=== PATIENT | male | born 1940 | race Caucasian/White ===

== ENCOUNTER → 2019-01-15 | Outpatient (CLI) | payer MEDICARE, OTHER ==
[~2019-01-15] MED LIST: ACYC800 PO; CIPR500 PO; DIPASPER; DOC250 PO; FENO54; HYDACE5 PO; METF500 PO; METO100ER; METO25ER; METR500 PO; Norco 5-325 Ta1 EACH PO; ONDA8ODT MM; PIOG15; RXHYDACE PO; RXONDA4ODT MM; SIMV5 PO; [UNRECOGNIZED DRUG - REMARK]; [UNRECOGNIZED DRUG - REMARK]; [UNRECOGNIZED DRUG - REMARK]
[2019-01-15 14:00] LABS: Source, Urine Clean Catch
[2019-01-15 15:06] LABS: Bilirubin, Urine Neg (Neg); Blood, Urine 1+ (Neg); Glucose Qualitative, Urine 1+ (Neg); Ketones, Urine Neg (Neg); Leukocyte Esterase, Urine 1+ (Neg); Nitrite, Urine Neg (Neg); Protein, Urine 3+ (Neg); Specific Gravity, Urine 1.015 (1.003-1.022); Urobilinogen, Urine 1+ (Normal)
[2019-01-15 15:11] LABS: Appearance, Urine Hazy (Clear); Color, Urine Yellow (P-Yellow)
[2019-01-15 15:12] LABS: Red Blood Cells, Urine 0-2 /hpf (0-2)
[2019-01-15 15:14] LABS: Bacteria Rare /hpf; Squamous Epithelial Cells Rare /hpf (Few)
== END | disposition home or self-care (01) ==
LOC: LAB SHORT 13:58 → LAB 13:58 → LAB FUT 01-16 13:40 → EDSTATUS 01-16 13:40
PROVIDERS: Urology
DX: N39.0 Urinary tract infection, site not specified (principal)
CPT/HCPCS: 81001; 87086

== ENCOUNTER 2020-02-28 13:49 | Inpatient (IN) | payer MEDICARE, OTHER ==
[~2020-02-28] VITALS: Ht 172.7 cm; Wt 88.2 kg
[~2020-02-28 13:49] MED LIST changes: +FENO54 PO
[2020-02-28 14:11] LABS: BASOPHILS ABSOLUTE AUTO 0.05 K/mm3 (0.00-0.23); BASOPHILS PERCENT AUTO 1 % (0-2); EOSINOPHILS ABSOLUTE AUTO 0.06 K/mm3 (0.00-0.68); EOSINOPHILS PERCENT AUTO 1 % (0-6); Hematocrit 44.5 % (37.0-53.0); Hemoglobin 14.3 g/dL (13.5-17.5); IMMATURE GRAN ABSOLUTE AUTO 0.06 K/mm3 (0.00-0.10); IMMATURE GRAN PERCENT AUTO 1 % (0-1); LYMPHOCYTES ABSOLUTE AUTO 1.72 K/mm3 (0.84-5.20); LYMPHOCYTES PERCENT AUTO 25 % (21-46); MONOCYTES ABSOLUTE AUTO 0.53 K/mm3 (0.16-1.47); MONOCYTES PERCENT AUTO 8 % (4-13); Mean Corpuscular HGB 30.4 pg (26.0-34.0); Mean Corpuscular HGB Conc 32.1 g/dL (31.5-36.5); Mean Corpuscular Volume 95 fL (80-100); Mean Platelet Volume 11.2 fL (9.1-12.4); NEUTROPHILS ABSOLUTE AUTO 4.52 K/mm3 (1.96-9.15); NEUTROPHILS PERCENT AUTO 65 % (41-73); Platelet Count 217 K/mm3 (150-400); RDW Coefficient Variation 12.6 % (11.7-14.2); White Blood Cell Count 6.94 K/mm3 (4.00-11.30)
[2020-02-28] MEDS ORDERED: PLAVIX75 MG PO (14:29)
[2020-02-28] MEDS ORDERED: Enalapril Malea20 MG PO (14:30)
[2020-02-28] MEDS ORDERED: GABAPENTIN600 MG PO (14:30)
[2020-02-28 14:33] LABS: Albumin, Blood 3.4 g/dL (3.4-5.0); Albumin/Globulin Ratio 0.9 (0.8-1.8); Bilirubin, Total 0.5 mg/dL (0.1-1.0); Calcium, Blood 9.7 mg/dL (8.5-10.1); Creatinine, Blood 1.38 mg/dL (0.60-1.20); Globulin, Blood 3.6 g/dL (2.2-4.0); Potassium, Blood 4.4 mmol/L (3.5-5.5); Troponin I 0.083 ng/mL (0.000-0.040)
[2020-02-28] MEDS ORDERED: METOPROLOL TART50 MG PO (15:23)
[2020-02-28] MEDS ORDERED: METFORMIN HCL500 M3 PO (15:24)
--- NOTE | 2020-02-28 17:36 | NUR ---
RECEIEVED REPORT FROM MANUELITO WARD RN, AT 1640. PATIENT ARRIVED TO ROOM 350 AT 1655 BY STRETCHER AND TRANSFERED INDEPENDENTLY TO HOSPITAL BED. VITALS STABLE. DENIES PAIN. H&P, ASSESSMENT AND MED REC COMPLETED WITH THE ASSISTANCE OF PATIENT. ALERT AND ORIENTED; INDEPENDANT. PATIENT IN ROOM WATCHING TV AT THIS TIME. WILL CONTINUE TO MONITOR AND PROVIDE CARE NEEDED.
[2020-02-28] MEDS ORDERED: METF500C PO (18:19)
--- NOTE | 2020-02-28 23:00 | NUR ---
TELE/PHYSICIAN COMMUNICATION *LATE ENTRY* AROUND 2150 PCU HOME SERVICE CONSULTANT CALLED & REPORTED PT HAD BEEN HAVING AN INVERTED T WAVE SINCE DAY SHIFT HOWEVER WITHIN THE LAST HR IT WAS MORE DEPRESSED. PT DENIED DYSPNEA, ANY CHEST PAIN OR DISCOMFORT & VITALS ARE STABLE. LAST TROPONIN WAS 0.091. CALLED DR LANE & SHE ORDERED STAT TROPONIN & EKG. ALSO INFORMED DR LANE I HELD PTS NICOLAS METOPROLOL SINCE HR @50 & THERE'S NO PARAMETERS ON MED. DR LANE CAME TO FLOOR TO ASSESS PT, STATED IF TROPONIN LEVEL WAS INCREASED SHE WOULD START PT ON HEP DRIP. WCTM PT.
--- NOTE | 2020-02-29 05:17 | NUR ---
SHIFT SUMMARY AOX4. VSS, EXCEPT HR OSMAN T/O NIGHT. TELE SB c 1ST DEGREE HB @50. READ PREVIOUS NOTE ABOUT TELE/PHYISICAN COMMUNICATION. LAST TROPONIN WAS 0.091. PT DENIES ANY CHEST PAIN OR DISCOMFORT. DENIES DYSPNEA. CBG @HS WAS 191. IND IN ROOM, DENIES DIZZINESS. PT & FAMILY WOULD LIKE DR TO COMMUNICATE TEST RESULTS TO THEM, SO THEY CAN UNDERSTAND MORE ABOUT WHAT IS GOING ON-WILL PASS TO ONCOMING NURSE. CALL LIGHT IN REACH.
[2020-02-29 06:49] LABS: BASOPHILS ABSOLUTE AUTO 0.03 K/mm3 (0.00-0.23); BASOPHILS PERCENT AUTO 1 % (0-2); EOSINOPHILS ABSOLUTE AUTO 0.12 K/mm3 (0.00-0.68); EOSINOPHILS PERCENT AUTO 3 % (0-6); Hematocrit 39.1 % (37.0-53.0); Hemoglobin 12.4 g/dL (13.5-17.5); IMMATURE GRAN ABSOLUTE AUTO 0.01 K/mm3 (0.00-0.10); IMMATURE GRAN PERCENT AUTO 0 % (0-1); LYMPHOCYTES ABSOLUTE AUTO 1.35 K/mm3 (0.84-5.20); LYMPHOCYTES PERCENT AUTO 28 % (21-46); MONOCYTES ABSOLUTE AUTO 0.45 K/mm3 (0.16-1.47); MONOCYTES PERCENT AUTO 9 % (4-13); Mean Corpuscular HGB 30.2 pg (26.0-34.0); Mean Corpuscular HGB Conc 31.7 g/dL (31.5-36.5); Mean Corpuscular Volume 95 fL (80-100); NEUTROPHILS ABSOLUTE AUTO 2.92 K/mm3 (1.96-9.15); NEUTROPHILS PERCENT AUTO 60 % (41-73); Platelet Count 176 K/mm3 (150-400); RDW Coefficient Variation 12.8 % (11.7-14.2); RDW Standard Deviation 43.9 fL (35.1-46.3); Red Blood Cell Count 4.11 M/mm3 (4.30-5.90); White Blood Cell Count 4.88 K/mm3 (4.00-11.30)
[2020-02-29 07:39] LABS: Alanine Aminotransfer (ALT/SGP 34 U/L (12-78); Albumin, Blood 2.9 g/dL (3.4-5.0); Alk Phos 69 U/L (50-136); Anion Gap 7 mmol/L (6-16); Aspartate Aminotrans (AST/SGOT 21 U/L (12-37); Bilirubin, Total 0.5 mg/dL (0.1-1.0); Blood Urea Nitrogen 36 mg/dL (8-24); Bun/Creatinine Ratio 26.1 (12.0-20.0); CHOL/HDL RATIO 3.4; CO2, Blood 26 mmol/L (21-32); Chloride, Blood 112 mmol/L (98-108); Cholesterol 134 mg/dL (50-200); Creatinine, Blood 1.38 mg/dL (0.60-1.20); Globulin, Blood 2.9 g/dL (2.2-4.0); Glomerular Filtration Rate 52 (60-); Glucose, Blood 134 mg/dL (70-99); HDL Cholesterol 40 mg/dL (>39); LDL/HDL RATIO 1.5; Low Density Lipoprotein Chol 58 mg/dL (0-110); Magnesium, Blood 1.6 mg/dL (1.6-2.4); Potassium, Blood 4.5 mmol/L (3.5-5.5); Sodium, Blood 145 mmol/L (136-145); Total Protein, Blood 5.8 g/dL (6.4-8.2); Triglycerides 180 mg/dL (30-160); Troponin I 0.073 ng/mL (0.000-0.040); Very Low Density Lipoprot Chol 36 mg/dL (6-32)
--- NOTE | 2020-02-29 10:24 | NUR ---
echocardiogram complete 02/28/20 in ER
--- NOTE | 2020-02-29 18:23 | NUR ---
NO ACUTE CHANGES. PT HAD NO COMPLAINTS OF PAIN, SOB, N/V/D. NO ADVERSE REPORTS FROM TELE MONITOR . PT IS ALERT AND ORIENTED AND ABLE TO EXPRESS ANY NEEDS. CARDIOLOGY CONSULT CALLED. CALL LIGHT WITHIN REACH.
--- NOTE | 2020-02-29 21:32 | NUR ---
TRANSFER RM PT TO TRANSFER TO RM 306 FROM 350, GAVE REPORT TO TIMBO FRAZIER. PT HAS HAD NO CHEST PAIN OR SOB SO FAR THIS SHIFT.
--- NOTE | 2020-02-29 22:44 | NUR ---
02/29/20 2145 RECEIVED PT VIA BED WITH HIS BELONGINGS. ORIENTED TO ROOM AND ASSISTED TO BR FOR VOIDING. DENIES ANY DISCOMFORT OR ANY S/S. HEART MONITOR RUNNING SINUS OSMAN AT 50. INFORMED PT TO CALL FOR HELP TO BATHROOM DURING NIGHT. BED ALARM ON. PT IS ALERT AND COOPERATIVE.
--- NOTE | 2020-03-01 07:25 | NUR ---
03/01/20 0600 NPO SINCE MIDNIGHT. PT SLEEPING WELL. PLAN ANGIOGRAM TODAY. DENIES ANY PAIN OR S/S. HEART MONITOR REMAINS SINUS OSMAN IN LOW 50'S.
--- NOTE | 2020-03-01 12:11 | NUR ---
PT IS A/O X4, PLEASANT AFFECT. STATE NO CHEST PAIN, SOB OR NEW N/T. TELE MX STATE SINUS OSMAN 50'S HOWEVER HAS DIPPED LOW 39, METOPROLOL HELD THIS AM. PT HAS BEEN ASYMPTOMATIC. HE IS NPO, ON SCHEDULE FOR ANGIOGRAM TODAY w DR KENNEY. HEART CTR CALLED STATE NO DEFINITE TIME FOR PROCEDURE, PT NOTIFIED. DAUGHTER IS @ BEDSIDE.
--- NOTE | 2020-03-01 12:58 | NUR ---
HRT CTR RN IN APPROX 1245 TO TAKE PT OUT FOR ANGIOGRAM. HE WILL TRANSFER TO U 13, REPORT CALLED TO ALBERTO AMALGAMATOR RECIEVING.
--- NOTE | 2020-03-01 14:49 | NUR ---
ASSUMED PATIENT CARE. PATIENT ARRIVED FROM HEART CENTER VIA BED, ALERT AND DENIES CHEST PAIN, NO SIGNS OF ACUTE DISTRESS. SCANT DISCHARGE AT ANGIO PUNCTURE SITE ON R. WRIST. WCTM.
--- NOTE | 2020-03-01 18:35 | NUR ---
PATIENT TRANSFERED FROM MEDICAL FLOOR TO HEART CENTER TO PCU THIS SHIFT POST ANGIO. PATIENT DENIES CHEST PAIN THIS SHIFT, IN NSR. SCANT DISCARGE AT RADIAL SITE, HEMATOMA NOTED PROXIMAL TO TR BAND, ROSENDA RN HELD PRESSURE AT HEMATOMA DECREASE IN SITE TENDERNESS AND SWELLING NOTED. PATIENT ON ROOM AIR, ALERT AND ORIENTED, STANDBY ASSIST TO BATHROOM. X2 STENTS PLACED, PLAN IS FOR OUTPATIENT FOLLOW UP WITH CARDIOLOGY.
--- NOTE | 2020-03-01 21:38 | NUR ---
ASSUMED CARE OF PATIENT AT APPROXIMATELY 1900 FROM HOLDEN Bernal RN. PATIENT ALERT AND ORIENTED X4; SLEEPING IN BETWEEN CARE ROUNDING AND AIR REMOVAL FROM TR BAND. PATIENT REPORTS HIS RIGHT ARM BOTHERS HIM A LITTLE; ICE PACK GIVEN AND ELEVATED. PATIENT REPORTS ARM FEELS BETTER AFTER AIR REMOVAL FROM TR BAND. PATIENT DENIES PAIN OTHERWISE, NUMBNESS, TINGLING, DIZZINESS OR NAUSEA. NSR ON TELE; OXYGEN SATURATION ABOVE 90% ON ROOM AIR. SBA OUT OF BED DUE TO ANGIO ACCESS AND RESTRICTIONS. PATIENT USING URINAL IN BED. NO S/S OF ANOTHER HEMATOMA, ACTIVE BLEEDING NOTED; TR BAND ALMOST DEFLATED; 10 CC REMOVED SINCE ASSUMING CARE; ARMBOARD IN PLACE. PIV S/L. PATIENT CURRENTLY RESTING IN BED; CALL LIGHT IN REACH; BED IN LOWEST POSISTION; WILL CONTINUE TO MONITOR AND ASSESS UNTIL END OF SHIFT.
[2020-03-02 04:44] LABS: BASOPHILS ABSOLUTE AUTO 0.04 K/mm3 (0.00-0.23); BASOPHILS PERCENT AUTO 1 % (0-2); EOSINOPHILS ABSOLUTE AUTO 0.16 K/mm3 (0.00-0.68); EOSINOPHILS PERCENT AUTO 3 % (0-6); Hematocrit 38.5 % (37.0-53.0); Hemoglobin 12.8 g/dL (13.5-17.5); IMMATURE GRAN ABSOLUTE AUTO 0.01 K/mm3 (0.00-0.10); IMMATURE GRAN PERCENT AUTO 0 % (0-1); LYMPHOCYTES ABSOLUTE AUTO 1.28 K/mm3 (0.84-5.20); LYMPHOCYTES PERCENT AUTO 22 % (21-46); MONOCYTES ABSOLUTE AUTO 0.57 K/mm3 (0.16-1.47); MONOCYTES PERCENT AUTO 10 % (4-13); Mean Corpuscular HGB Conc 33.2 g/dL (31.5-36.5); Mean Corpuscular Volume 93 fL (80-100); Mean Platelet Volume 11.3 fL (9.1-12.4); NEUTROPHILS ABSOLUTE AUTO 3.73 K/mm3 (1.96-9.15); NEUTROPHILS PERCENT AUTO 64 % (41-73); Platelet Count 213 K/mm3 (150-400); RDW Coefficient Variation 12.7 % (11.7-14.2); RDW Standard Deviation 43.4 fL (35.1-46.3); Red Blood Cell Count 4.13 M/mm3 (4.30-5.90); White Blood Cell Count 5.79 K/mm3 (4.00-11.30)
[2020-03-02 05:14] LABS: Albumin, Blood 2.9 g/dL (3.4-5.0); Bilirubin, Total 0.5 mg/dL (0.1-1.0); Bun/Creatinine Ratio 25.3 (12.0-20.0); Creatinine, Blood 1.66 mg/dL (0.60-1.20); Potassium, Blood 4.2 mmol/L (3.5-5.5); Total Protein, Blood 5.9 g/dL (6.4-8.2)
--- NOTE | 2020-03-02 06:42 | NUR ---
PATIENT SLEPT ABOUT TEN HOURS LAST NIGHT. TR BAND REMOVED BEFORE MIDNIGHT AND TEGADERM PLACED; ARMBOARD IN PLACE. SB ON TELE; 2ND DEGREE PER BLEACH RANGE OPERATOR. VSS. NO OTHER ACUTE CHANGES TO REPORT. WILL CONTINUE TO MONITOR AND ASSESS UNTIL END OF SHIFT.
--- NOTE | 2020-03-02 07:08 | NUR ---
ASSUMED PATIENT CARE. PATIENT RESTING COMFORTABLY IN BED, NO SIGNS OF ACUTE DISTRESS. RADIAL SITE NON-TENDER, NO SIGNS OF NEW DISCHARGE, WCTM.
[2020-03-02] MEDS ORDERED: METO50ER PO (10:17)
[2020-03-02] MEDS ORDERED: ASPI81CH PO (10:17)
--- NOTE | 2020-03-02 11:20 | NUR ---
PATIENT AND DAUGHTER PROVIDED DISCHARGE INFO REGARDING ANGIO RADIAL SITE CARE, FOLLOW UP PLANS AND APPOINTMENTS, INFO REGARDING MEDICATION DOSAGE CHANGES AND NEW MEDS, AND REASONS TO RETURN TO THE HOSPITAL. PATIENT AND PATIENT'S DAUGHTER VERBALIZED UNDERSTANDING, NO SIGNS OF ACUTE DISTRESS. LEFT VIA WHEELCHAIR.
== END 2020-03-02 10:52 | disposition home or self-care (01) | DRG 247 ==
LOC: ER 13:49 → MEDS 15:46 → PCU 03-01 13:09
PROVIDERS: Emergency Medicine; ADMIT Internal Medicine
PROC: 027035Z Dilation of Coronary Artery, One Artery with Two Drug-eluting Intraluminal Devices, Percutaneous Approach (ICD-10-PCS; principal; 2020-03-01)
PROC: B2111ZZ Fluoroscopy of Multiple Coronary Arteries using Low Osmolar Contrast (ICD-10-PCS; 2020-03-01)
PROC: 4A033BC Measurement of Arterial Pressure, Coronary, Percutaneous Approach (ICD-10-PCS; 2020-03-01)
DX: I21.4 Non-ST elevation (NSTEMI) myocardial infarction (principal); Z79.84 Long term (current) use of oral hypoglycemic drugs; I25.10 Atherosclerotic heart disease of native coronary artery without angina pectoris; Z95.5 Presence of coronary angioplasty implant and graft; Z87.891 Personal history of nicotine dependence; E11.22 Type 2 diabetes mellitus with diabetic chronic kidney disease; I35.0 Nonrheumatic aortic (valve) stenosis; E78.5 Hyperlipidemia, unspecified; I12.9 Hypertensive chronic kidney disease with stage 1 through stage 4 chronic kidney disease, or unspecified chronic kidney disease; N18.9 Chronic kidney disease, unspecified; R23.2 Flushing; N18.30 Chronic kidney disease, stage 3 unspecified
CPT/HCPCS: 36415; 71046; 76937; 80053; 80061; 82947; 83036; 83735; 83880; 84443; 84484; 85025; 85347; 93005; 93010; 93306; 93454; 93571; 94762; 99152; 99153; 99285-25; A9270-GY; C1725; C1769; C1874; C1887; C1894; C9600; J1644; J2250; J3010; J7030; J7050; Q9967

== ENCOUNTER → 2021-01-10 | Outpatient (CLI) | payer MEDICARE, OTHER ==
[~2021-01-10] MED LIST changes: +ASPI81CH PO; +Enalapril Malea20 MG PO; +GABAPENTIN600 MG PO; +METF500C PO; +METFORMIN HCL500 M3 PO; +METO50ER PO; +METOPROLOL TART50 MG PO; +PLAVIX75 MG PO
[2021-01-10 09:26] LABS: Squamous Epithelial Cells Few /hpf (Few)
[2021-01-10 09:27] LABS: Bacteria Few /hpf
[2021-01-10 09:28] LABS: Granular Casts 0-2 /lpf (0); Hyaline Casts 0-2 /lpf (0-2)
== END | disposition home or self-care (01) ==
LOC: LAB SHORT 09:01
PROVIDERS: Radiology Therapeutic Radiology
DX: Z51.0 Encounter for antineoplastic radiation therapy (principal); C61 Malignant neoplasm of prostate; R39.15 Urgency of urination
CPT/HCPCS: 81015; 87086

== ENCOUNTER → 2021-09-19 | Outpatient (CLI) | payer MEDICARE, OTHER ==
[2021-09-20 15:05] LABS: Adenovirus F 40/41 Not Detected (NOT DETECT); Astrovirus Not Detected (NOT DETECT); Campylobacter Sp Not Detected (NOT DETECT); Cryptosporidium Not Detected (NOT DETECT); Cyclospora Cayetanensis Not Detected (NOT DETECT); E. Coli O157 Not Detected (NOT DETECT); Entamoeba Histolytica Not Detected (NOT DETECT); Enteroaggregative E. coli-EAEC Not Detected (NOT DETECT); Enteropathogenic E. coli-EPEC Not Detected (NOT DETECT); Enterotoxigenic E. coli-ETEC Not Detected (NOT DETECT); Giardia Lamblia Not Detected (NOT DETECT); Norovirus GI/GII Not Detected (NOT DETECT); Plesiomonas Shigelloides Not Detected (NOT DETECT); Rotavirus A Not Detected (NOT DETECT); Salmonella Sp Not Detected (NOT DETECT); Sapovirus Not Detected (NOT DETECT); Shiga Toxin-prod E. coli-STEC Not Detected (NOT DETECT); Shigella/Enteroin E. coli-EIEC Not Detected (NOT DETECT); Vibrio Cholerae Not Detected (NOT DETECT); Vibrio Sp Not Detected (NOT DETECT); Yersinia Enterocolitica Not Detected (NOT DETECT)
== END | disposition home or self-care (01) ==
LOC: LAB 11:32 → LAB FUT 11:32
PROVIDERS: Internal Medicine
DX: R19.7 Diarrhea, unspecified (principal)
CPT/HCPCS: 87507

== ENCOUNTER → 2022-02-09 | Outpatient (CLI) | payer MEDICARE, OTHER ==
[2022-02-11 12:56] LABS: Stool Occult Blood Guaiac 1 Neg (Neg); Stool Occult Blood Guaiac 2 Neg (Neg); Stool Occult Blood Guaiac 3 Neg (Neg)
== END | disposition home or self-care (01) ==
LOC: LAB 10:30 → LAB SHORT 10:30 → LAB FUT 02-05 12:10
PROVIDERS: Internal Medicine
DX: D64.9 Anemia, unspecified (principal)
CPT/HCPCS: 82270

== ENCOUNTER 2022-06-28 14:52 | Inpatient (IN) | payer MEDICARE ==
[~2022-06-28] VITALS: Ht 172.7 cm; Wt 86.5 kg
[~2022-06-28 14:52] MED LIST changes: -Enalapril Malea20 MG PO; -GABAPENTIN600 MG PO; -METO50ER PO
[2022-06-28 15:45] LABS: BASOPHILS ABSOLUTE AUTO 0.02 K/mm3 (0.00-0.23); BASOPHILS PERCENT AUTO 0 % (0-2); EOSINOPHILS ABSOLUTE AUTO 0.09 K/mm3 (0.00-0.68); EOSINOPHILS PERCENT AUTO 2 % (0-6); Hemoglobin 11.1 g/dL (13.5-17.5); IMMATURE GRAN ABSOLUTE AUTO 0.01 K/mm3 (0.00-0.10); IMMATURE GRAN PERCENT AUTO 0 % (0-1); LYMPHOCYTES ABSOLUTE AUTO 0.73 K/mm3 (0.84-5.20); LYMPHOCYTES PERCENT AUTO 15 % (21-46); MONOCYTES PERCENT AUTO 8 % (4-13); Mean Corpuscular HGB 31.8 pg (26.0-34.0); Mean Corpuscular HGB Conc 33.6 g/dL (31.5-36.5); Mean Corpuscular Volume 95 fL (80-100); Mean Platelet Volume 10.3 fL (9.1-12.4); NEUTROPHILS PERCENT AUTO 74 % (41-73); Platelet Count 189 K/mm3 (150-400); RDW Coefficient Variation 12.8 % (11.7-14.2); Red Blood Cell Count 3.49 M/mm3 (4.30-5.90); White Blood Cell Count 4.75 K/mm3 (4.00-11.30)
[2022-06-28 16:03] LABS: Albumin, Blood 2.7 g/dL (3.4-5.0); Albumin/Globulin Ratio 0.9 (0.8-1.8); Bun/Creatinine Ratio 15.5 (12.0-20.0); Creatinine, Blood 2.07 mg/dL (0.60-1.20); Globulin, Blood 3.1 g/dL (2.2-4.0); Potassium, Blood 4.1 mmol/L (3.5-5.5); Total Protein, Blood 5.8 g/dL (6.4-8.2)
[2022-06-28] MEDS ORDERED: ENAL10 PO (18:54)
[2022-06-28] MEDS ORDERED: ATOR40TA PO (18:55)
[2022-06-28] MEDS ORDERED: METO50ER PO (18:55)
[2022-06-28] MEDS ORDERED: GABAPENTIN600 MG PO (18:56)
[2022-06-28 19:43] LABS: Anti-Xa UFH, PHA Monitoring <0.10 IU/mL
[2022-06-29] MEDS ORDERED: GABAPENTIN PO (01:08)
[2022-06-29] MEDS ORDERED: [UNRECOGNIZED DRUG - OTHER] PO (01:08)
[2022-06-29 02:12] LABS: BASOPHILS ABSOLUTE AUTO 0.05 K/mm3 (0.00-0.23); BASOPHILS PERCENT AUTO 1 % (0-2); EOSINOPHILS ABSOLUTE AUTO 0.12 K/mm3 (0.00-0.68); EOSINOPHILS PERCENT AUTO 2 % (0-6); Hemoglobin 11.2 g/dL (13.5-17.5); IMMATURE GRAN ABSOLUTE AUTO 0.01 K/mm3 (0.00-0.10); IMMATURE GRAN PERCENT AUTO 0 % (0-1); LYMPHOCYTES ABSOLUTE AUTO 0.84 K/mm3 (0.84-5.20); LYMPHOCYTES PERCENT AUTO 15 % (21-46); MONOCYTES ABSOLUTE AUTO 0.52 K/mm3 (0.16-1.47); MONOCYTES PERCENT AUTO 9 % (4-13); Mean Corpuscular HGB 32.3 pg (26.0-34.0); Mean Corpuscular Volume 92 fL (80-100); Mean Platelet Volume 10.4 fL (9.1-12.4); NEUTROPHILS ABSOLUTE AUTO 4.04 K/mm3 (1.96-9.15); NEUTROPHILS PERCENT AUTO 72 % (41-73); Platelet Count 193 K/mm3 (150-400); RDW Coefficient Variation 12.8 % (11.7-14.2); RDW Standard Deviation 43.1 fL (35.1-46.3); Red Blood Cell Count 3.47 M/mm3 (4.30-5.90); White Blood Cell Count 5.58 K/mm3 (4.00-11.30)
[2022-06-29 02:42] LABS: Bun/Creatinine Ratio 15.1 (12.0-20.0); Calcium, Blood 8.7 mg/dL (8.5-10.1); Creatinine, Blood 2.19 mg/dL (0.60-1.20); Potassium, Blood 3.3 mmol/L (3.5-5.5)
--- NOTE | 2022-06-29 05:09 | NUR ---
END OF SHIFT SUMMARY 1200CC UO, HEPARIN GTT AT 15 UNITS, RESTED WELL, STANDS AT BS WITH WALKER TO USE THE URINAL, HYDRALAZINE PRN FOR HTN, OSMAN THAT BRIEFLY DIPPED TO 38 WHILE ASLEEP
--- NOTE | 2022-06-29 18:23 | NUR ---
SHIFT SUMMARY ASSUMED CARE OF PT AT 0700 THIS AM. NO ACUTE CHANGES T/O THE SHIFT, PT DENIES CHEST PAIN OR PRESSURE, SEE DOCUMENTED VS. HYDRALIZINE GIVEN X 1 FOR ELEVATED BP WITH GOOD RESPONSE. CARDIOLOGY CONSULTED BY DR BARONE, ECHO COMPLETED. PT REMAINS ON HEPARIN GTT T/O THE DAY. FAMILY HAS BEEN IN ROOM AND HAS BEEN UPDATED ON PT'S CONDITION. PT IS ABLE TO USE CALL LIGHT FOR NEEDS, CALL LIGHT IN REACH, WILL CONITNUE TO MONITOR AND GIVE REPORT TO NOC SHIFT RN.
--- NOTE | 2022-06-30 02:03 | NUR ---
CALLED TO ROOM BY PT FOR SOB, PT SATS 98% ON RA, VSS AND CHARTED, FSBS 167, SKIN WARM AND DRY, WHEN ASKED IF HE WAS HAVING ANY CHEST PAIN OR PRESSURE, HE ANSWERED "I THINK FOR A SECOND BUT IT'S GONE", A COUPLE OF PVC'S NOTED ON TELE BUT OTHERWISE NO CHANGES, PLACED A CALL TO LAB TO DRAW CHEMISTRY A BIT EARLY, POSSIBLY DEPLETED K?
[2022-06-30 03:40] LABS: BASOPHILS ABSOLUTE AUTO 0.03 K/mm3 (0.00-0.23); BASOPHILS PERCENT AUTO 1 % (0-2); EOSINOPHILS ABSOLUTE AUTO 0.13 K/mm3 (0.00-0.68); EOSINOPHILS PERCENT AUTO 2 % (0-6); Hematocrit 30.5 % (37.0-53.0); Hemoglobin 10.5 g/dL (13.5-17.5); IMMATURE GRAN ABSOLUTE AUTO 0.02 K/mm3 (0.00-0.10); IMMATURE GRAN PERCENT AUTO 0 % (0-1); LYMPHOCYTES ABSOLUTE AUTO 0.84 K/mm3 (0.84-5.20); LYMPHOCYTES PERCENT AUTO 13 % (21-46); MONOCYTES ABSOLUTE AUTO 0.55 K/mm3 (0.16-1.47); MONOCYTES PERCENT AUTO 9 % (4-13); Mean Corpuscular HGB Conc 34.4 g/dL (31.5-36.5); Mean Corpuscular Volume 93 fL (80-100); Mean Platelet Volume 10.5 fL (9.1-12.4); NEUTROPHILS ABSOLUTE AUTO 4.68 K/mm3 (1.96-9.15); NEUTROPHILS PERCENT AUTO 75 % (41-73); Platelet Count 190 K/mm3 (150-400); RDW Coefficient Variation 12.9 % (11.7-14.2); RDW Standard Deviation 43.6 fL (35.1-46.3); Red Blood Cell Count 3.28 M/mm3 (4.30-5.90); White Blood Cell Count 6.25 K/mm3 (4.00-11.30)
[2022-06-30 03:57] LABS: Bun/Creatinine Ratio 17.9 (12.0-20.0); Calcium, Blood 8.6 mg/dL (8.5-10.1); Creatinine, Blood 2.52 mg/dL (0.60-1.20); Potassium, Blood 3.4 mmol/L (3.5-5.5)
--- NOTE | 2022-06-30 05:38 | NUR ---
END OF SHIFT SUMMARY SLEEP STUDY COMPLETED, VSS, NO FURTHER ISSUES OR COMPLAINTS, HEPARIN GTT AT 15 UNITS, LUNG SCAN SCHEDULED FOR 8-9 AM
[2022-06-30 08:49] LABS: Free Thyroxine 1.35 ng/dL (0.70-1.60)
[2022-06-30 08:50] LABS: Thyroid Stimulating Hormone 2.84 uIU/mL (0.360-4.800)
--- NOTE | 2022-06-30 17:39 | NUR ---
SHIFT SUMMARY: ASSUMED CARE OF PT AT 0700 THIS AM. PT HAD VQ SCAN AND BLE US, DR BARONE AND DR BO MADE AWARE OF RESULTS. PT WILL TRANSITION FROM HEPARIN TO ELIQUIS TONIGHT. PT HAS HAD NO COMPLAINTS T/O THE SHIFT, VSS, SEE DOCUMENTED ASSESSMENT. DR MIRZA ALSO CONSULTED TODAY FOR ACUTE ON CHRONIC KIDNEY DX. NO CHANGES TO PT CONDITION NOTED T/O THE DAY. PT FAMILY AT BEDSIDE AND UPDATED ON PT'S CONDITION THIS AFTERNOON. PT ABLE TO USE CALL LIGHT FOR NEEDS, CALL LIGHT IN REACH, WILL CONTINUE TO MONITOR AND GIVE REPORT TO NOC SHIFT.
[2022-07-01 04:01] LABS: Hemoglobin 10.1 g/dL (13.5-17.5); Mean Corpuscular HGB 31.8 pg (26.0-34.0); Mean Corpuscular HGB Conc 33.7 g/dL (31.5-36.5); Mean Corpuscular Volume 94 fL (80-100); Mean Platelet Volume 10.8 fL (9.1-12.4); Platelet Count 174 K/mm3 (150-400); RDW Coefficient Variation 12.9 % (11.7-14.2); RDW Standard Deviation 44.4 fL (35.1-46.3); Red Blood Cell Count 3.18 M/mm3 (4.30-5.90); White Blood Cell Count 4.49 K/mm3 (4.00-11.30)
[2022-07-01 04:25] LABS: Albumin, Blood 2.2 g/dL (3.4-5.0); Anion Gap 5 mmol/L (6-16); Blood Urea Nitrogen 48 mg/dL (8-24); Bun/Creatinine Ratio 16.3 (12.0-20.0); CO2, Blood 27 mmol/L (21-32); Calcium, Blood 8.2 mg/dL (8.5-10.1); Chloride, Blood 110 mmol/L (98-108); Creatinine, Blood 2.95 mg/dL (0.60-1.20); Glomerular Filtration Rate 20 (60-); Glucose, Blood 123 mg/dL (70-99); Phosphorus, Blood 4.8 mg/dL (2.5-4.9); Potassium, Blood 3.7 mmol/L (3.5-5.5); Sodium, Blood 142 mmol/L (136-145)
--- NOTE | 2022-07-01 06:24 | NUR ---
SHIFT SUMMARY OSMAN IN THE 40'S AND 50'S, OTHERWISE VSS, PT RESTED WELL WITHOUT ISSUE EXCEPT THE ADDITION OF 2LPM NC WHILE ASLEEP, DESATTING INTO THE LOW 80'S, NO ACTUAL APNEA NOTED, JUST NOT OXYGENATING ADEQUATELY
--- NOTE | 2022-07-01 08:36 | NUR ---
INITIAL ASSESSMENT: Patient is awake sitting up in the chair eating breakfast. He is alert and oriented. He denies pain or N/T at this time. Patient denies CP or SOB at this time. HRR, SR with a first degree AVB, with a rate in the 60s-70s, murmur noted. LS Dim in the bases, biox in in the high 90s on 1l via NC, his oxygen is turned off, saturations remain int he mid to low 90s. BT+. PPP. 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 VSS. AM meds given whole with a sip of water. Call placed to Dr. Chandler due to worsening renal failure, order to hold lasix this AM. Patient denies other needs at this time. Call light in reach.
--- NOTE | 2022-07-01 15:53 | NUR ---
UPDATE: VSS. Patient has been resting comfortably in bed. Report given to med floor RN, patient will go to 339.
--- NOTE | 2022-07-01 17:00 | NUR ---
TRANSFER FROM PCU/LATE ENTRY 1553: RECEIVED REPORT FROM MD SENIOR RESEARCH SCIENTIST. 1600: RECEIVED PT TO ROOM 339 VIA W/C. PLACED IN BED, MADE COMFORTABLE, ORIENTED TO ROOM AND UNIT ROUTINE. PT YAVAPAI-APACHE. DENIES CP OR SOB. CALL LIGHT WITHIN REACH.
--- NOTE | 2022-07-01 17:22 | NUR ---
REPORT GIVEN TO ROCAEL BOLANOS. ALL QUESTIONS ADDRESSED WITH ACCEPTING RN. ROCAEL BOLANOS INTRODUCED TO PT.
--- NOTE | 2022-07-01 17:35 | NUR ---
BEDSIDE REPORT COMPLETED WITH CICI PRINGLE. PT IN BED, CALL LIGHT IN REACH NO S&S OF DISTRESS NOTED. WILL CTM AND PASS ON IN REPORT TO NIGHT RN AT SHIFT CHANGE.
--- NOTE | 2022-07-02 05:45 | NUR ---
RETURNED CALL RE: RECENT 12 BEAT RUN V.TACH. VSS AT THE TIME AND PT DENIED CP, SOB AND ALL OTHER S/S CARDIAC DISTRESS. NO NEW ORDERS RECIEVED.
--- NOTE | 2022-07-02 06:01 | NUR ---
SUMMARY: PT A/OX4, CALLS APPROPRIATELY TO SPECIFY NEEDS AND IS PLEASANT AND COOPERATIVE W/CARE. HE'S DENIED CP, SOB AND ALL OTHER S/S CARDIAC DISTRESS. 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 PT DID HAVE X1 12 BEAT RUN VTACH BUT WAS ASYMPTOMATIC W/STABLE VS. MD MADE AWARE W/NO NEW ORDERS. HE'S ON ELOQUIS FOR PE BUT HAS QUESTIONS RE: MED AND WOULD LIKE TO DISCUSS THESE W/MD, NOTE LEFT ON WHITEBOARD AND WILL ENSURE DAY STAFF ARE AWARE. CONSULTING FOR CHRONIC KIDNEY DX. HE USED URINAL AT BEDSIDE AND VOIDS SMALL AMTS AT A TIME. NO ACUTE CHANGES, VSS/AFEBRILE. WCTM AND REPORT TO DAY RN.
[2022-07-02 07:08] LABS: Albumin, Blood 2.3 g/dL (3.4-5.0); Anion Gap 4 mmol/L (6-16); Blood Urea Nitrogen 52 mg/dL (8-24); Bun/Creatinine Ratio 16.9 (12.0-20.0); CO2, Blood 28 mmol/L (21-32); Calcium, Blood 8.4 mg/dL (8.5-10.1); Chloride, Blood 111 mmol/L (98-108); Creatinine, Blood 3.07 mg/dL (0.60-1.20); Glomerular Filtration Rate 19 (60-); Glucose, Blood 129 mg/dL (70-99); Phosphorus, Blood 4.1 mg/dL (2.5-4.9); Potassium, Blood 4.3 mmol/L (3.5-5.5); Sodium, Blood 143 mmol/L (136-145)
--- NOTE | 2022-07-02 09:45 | NUR ---
BLOOD IN STOOL PT CALLED RN INTO ROOM. PT HAD BM WITH SYEDA RED BLOOD IN STOOL. HELD AURELIA THIS AM. NOTIFIED, WILL CONTINUE WITH ELIQUIS & MONITOR BM'S. PT EDUCATED TO NOTIFY RN WHEN HE'S HAD A BM.
--- NOTE | 2022-07-02 17:54 | NUR ---
SHIFT SUMMARY PT A&O X 4. VSS. IS PLEASANT & COOPERATIVE WITH ALL CARE. RENAL LABS SLIGHTLY WORSE TODAY. CREATININE 3.07, GFR 19. AWARE. PT HAS HAD 2 BM'S TODAY. 2ND BM HAD NO BLOOD. PLAN IS TO CONTINUE WATCHING RENAL LABS.
--- NOTE | 2022-07-03 04:26 | NUR ---
SHIFT SUMMARY PATIENT HAD NO ACUTE CHANGES. AXOX 4 AND SBA TO BR. PIV REMAINS INTACT. HEATER ENGINEER HELPER REPORTS 2ND DEGREE TYPE ONE HR 57. CBG 174. ON ROOM AIR. VSS/AFEBRILE. DENIES CHEST PAIN, SOB, AND N/V. USES URINAL AT BEDSIDE. COOPERATIVE WITH CARE. CALL LIGHT IN REACH. BED IN LOWEST POSITION. WILL CONTINUE TO MONITOR UNTIL DAY SHIFT NURSE ASSUMES CARE.
[2022-07-03 05:54] LABS: Hematocrit 32.3 % (37.0-53.0); Hemoglobin 10.9 g/dL (13.5-17.5); Mean Corpuscular HGB 31.9 pg (26.0-34.0); Mean Corpuscular HGB Conc 33.7 g/dL (31.5-36.5); Mean Corpuscular Volume 94 fL (80-100); Mean Platelet Volume 10.7 fL (9.1-12.4); Platelet Count 181 K/mm3 (150-400); RDW Coefficient Variation 12.4 % (11.7-14.2); RDW Standard Deviation 42.7 fL (35.1-46.3); Red Blood Cell Count 3.42 M/mm3 (4.30-5.90); White Blood Cell Count 4.14 K/mm3 (4.00-11.30)
[2022-07-03 06:10] LABS: Albumin, Blood 2.3 g/dL (3.4-5.0); Anion Gap 6 mmol/L (6-16); Blood Urea Nitrogen 55 mg/dL (8-24); Bun/Creatinine Ratio 18.8 (12.0-20.0); CO2, Blood 28 mmol/L (21-32); Calcium, Blood 8.6 mg/dL (8.5-10.1); Chloride, Blood 107 mmol/L (98-108); Creatinine, Blood 2.92 mg/dL (0.60-1.20); Glomerular Filtration Rate 21 (60-); Glucose, Blood 178 mg/dL (70-99); Phosphorus, Blood 3.7 mg/dL (2.5-4.9); Potassium, Blood 4.6 mmol/L (3.5-5.5); Sodium, Blood 141 mmol/L (136-145)
--- NOTE | 2022-07-03 17:07 | NUR ---
SHIFT SUMMARY PATIENT DENIES PAIN, NAUSEA, AND SHORTNESS OF BREATH. PATIENT IS IND IN ROOM. PATIENT IS A&O X4. PATIENT AMBULATED IN HALLWAY WITH SUPERVISION AND CANE. BILL HOSE APPLIED TO BILAT LOWER EXTREMITITES. BOTH LEGS ALSO ELEVATED ON PILLOWS WHEN PATIENT IS LAYING DOWN. PATIENT HAD VISITORS THIS AFTERNOON. PATIENT EAGER TO GO HOME. PATIENT IS EATING AND DRINKING WELL. PATIENT IS PLEASANT AND COOPERATIVE WITH CARE.
--- NOTE | 2022-07-04 06:43 | NUR ---
SHIFT SUMMARY NOC PT A/O X 4. PT PLEASAND AND COOOPERATIVE WITH CARE. DUREING PM RX PASS PT REQUESTED MIRALAX TO HELP WITH BM. NO ACUTE CHANGES TO REPORT. PT SLEPT DURING MAJORITY OF SHIFT. PT EXPECTED TO DC HOME TODAY. PT IS CURRENTLY RESTING WITH BED IN LOWEST POSITION AND CALLL LIGHT WITHIN REACH.
[2022-07-04 16:26] LABS: Albumin, Blood 2.5 g/dL (3.4-5.0); Anion Gap 2 mmol/L (6-16); Blood Urea Nitrogen 57 mg/dL (8-24); Bun/Creatinine Ratio 18.9 (12.0-20.0); CO2, Blood 30 mmol/L (21-32); Calcium, Blood 8.8 mg/dL (8.5-10.1); Chloride, Blood 108 mmol/L (98-108); Creatinine, Blood 3.02 mg/dL (0.60-1.20); Glomerular Filtration Rate 20 (60-); Glucose, Blood 153 mg/dL (70-99); Phosphorus, Blood 3.5 mg/dL (2.5-4.9); Potassium, Blood 4.7 mmol/L (3.5-5.5); Sodium, Blood 140 mmol/L (136-145)
[2022-07-04 16:59] LABS: Albumin, Blood 2.4 g/dL (3.4-5.0); Anion Gap 6 mmol/L (6-16); Blood Urea Nitrogen 58 mg/dL (8-24); Bun/Creatinine Ratio 18.5 (12.0-20.0); CO2, Blood 30 mmol/L (21-32); Calcium, Blood 8.7 mg/dL (8.5-10.1); Chloride, Blood 104 mmol/L (98-108); Creatinine, Blood 3.14 mg/dL (0.60-1.20); Glomerular Filtration Rate 19 (60-); Glucose, Blood 139 mg/dL (70-99); Phosphorus, Blood 3.7 mg/dL (2.5-4.9); Potassium, Blood 5.6 mmol/L (3.5-5.5); Sodium, Blood 140 mmol/L (136-145)
--- NOTE | 2022-07-04 17:59 | NUR ---
SHIFT SUMMARY PT A&OX4 AND IN PLEASENT MOOD T/O SHIFT. FRIEND/FAMILY IN TO PT T/O VISITING HOURS. PROBABLE D/C TOMORROW PENDING LABS. TOLERATING PO INTAKE WELL. CALL LIGHT W/IN REACH. VSS. TELE IN PLACE, 2ND DEGREE W/ YVES.
--- NOTE | 2022-07-05 05:17 | NUR ---
SHIFT SUMMARY NOC PT A/O X 4. PT PLEASANT AND COOPERATIVE WITH CARE. PT IS POSSIBLE D/C TODAY PENDING AM LABS. PT ON TELE RUNNING AFIB @ 58 BPM. VSS. PT JUST GIVEN 1/2 TURKEY SANDWICH AND CUP OF DECAF COFEE AND TOLERATED PO INTAKE WELL. PT IS CURRENTLY RESTING WATCHING TV IN BED WITH BED IN LOWEST POSITION, AND CALL LIGHT WITHIN REACH.
[2022-07-05 08:46] LABS: Albumin, Blood 2.4 g/dL (3.4-5.0); Anion Gap 1 mmol/L (6-16); Blood Urea Nitrogen 59 mg/dL (8-24); Bun/Creatinine Ratio 18.2 (12.0-20.0); CO2, Blood 28 mmol/L (21-32); Calcium, Blood 8.5 mg/dL (8.5-10.1); Chloride, Blood 109 mmol/L (98-108); Creatinine, Blood 3.25 mg/dL (0.60-1.20); Glomerular Filtration Rate 18 (60-); Glucose, Blood 156 mg/dL (70-99); Phosphorus, Blood 3.3 mg/dL (2.5-4.9); Potassium, Blood 5.2 mmol/L (3.5-5.5); Sodium, Blood 138 mmol/L (136-145)
--- NOTE | 2022-07-05 09:34 | NUR ---
MD TORO NOTIFIED OF PT'S LOW HR THIS AM IN PERSON. MD AMES WITH AM MED ADMINISTRATION.
--- NOTE | 2022-07-05 10:30 | NUR ---
NOTIFIED MD CHARLTON OF [employer] REPORTING PT'S TELE SHOWED 3RD DEGREE HEART BLOCK WITH JUNCTIONAL BEATS AT HR OF 54.
--- NOTE | 2022-07-05 18:32 | NUR ---
PT CALM AND COOPERATIVE THIS SHIFT. PT ASYMPTOMATIC TO HR AND RHYTHM THIS SHIFT. PT DENIES ANY PAIN. NO ACUTE EVENTS THIS SHIFT.
--- NOTE | 2022-07-06 05:01 | NUR ---
SHIFT SUMMARY; NO ACUTE CHANGES OVERNIGHT. THE PT RESTED IN THE BED FOR THE ENTIRETY OF THE NIGHT. THE PT IS AOX X4 AND INDEPENDENT IN THE ROOM. THE PT USED THE BEDSIDE URINAL T/O THE NIGHT. TELE IS IN PLACE, 3RD DEGREE HEART BLOCK IN THE 40/50'S T/O THE NIGHT. THE PT DENIES ANY PAIN, SOB, CHEST PAIN/PRESSURE OR N/V T/O THE NIGHT. CURRENTLY THE PT IS RESTING IN BED WITH THE BED IN THE LOWEST POSITION AND THE CALL LIGHT AT BEDSIDE.
[2022-07-06 05:41] LABS: Albumin, Blood 2.5 g/dL (3.4-5.0); Anion Gap 4 mmol/L (6-16); Blood Urea Nitrogen 68 mg/dL (8-24); Bun/Creatinine Ratio 20.5 (12.0-20.0); CO2, Blood 26 mmol/L (21-32); Calcium, Blood 8.8 mg/dL (8.5-10.1); Chloride, Blood 107 mmol/L (98-108); Creatinine, Blood 3.32 mg/dL (0.60-1.20); Glomerular Filtration Rate 18 (60-); Glucose, Blood 219 mg/dL (70-99); Phosphorus, Blood 3.8 mg/dL (2.5-4.9); Sodium, Blood 137 mmol/L (136-145)
--- NOTE | 2022-07-06 13:28 | NUR ---
PT TRANSFERRED TO U 12. FAMILY AWARE. REPORT GIVEN TO CULLEN BOLANOS. PT A/O X 4 DENYING CP, SOB AT TIME OF TX. PT TX VIA WHEELCHAIR TO U 12 BY INFORMATION MANAGER. BELONGINGS TAKEN DOWN BY FAMILY.
--- NOTE | 2022-07-06 14:18 | NUR ---
PATIENT TRANSFER FROM MEDICAL FLOOR ROOM 339. ALERT AND ORIENTED X4. DENIES N/T. UNEQUAL PUPILS WITH LEFT BEING SLIGHTLY LARGER. WEARING GLASSES. UP IND, THIS RN ASKED FOR PATIENT TO CALL WHEN NEEDING TO GET UP FOR SAFETY. ON ROOM AIR SATING ABOVE 95%. LUNGS SOUNDING CLEAR AND DIM. TELE SHOWING 3RD DEGREE HEART BLOCK. PATIENT REMAINS ASYMPTOMATIC. BP STABLE. HR 40-60'S. PPP. BOWEL TONES PRESENT. DENIES ABDOMINAL PAIN/NAUSEA. EATING AND VOIDING WNL. AT BEDSIDE. DR. CHARLTON CALLED ON TRANSFER TO INQUIRE ABOUT REDRAWING K AFTER INSULIN, DEXTROSE AND CALCIUM GLUCONATE WERE GIVEN, NO NEW ORDERS FOR THIS RN TO PLACE AT THIS TIME. BLOOD SUGAR REMAINS STABLE. LEFT LOWER EXTREMITY PRESENTING WITH MINIMAL EDEMA COMPARED TO RIGHT. PATIENT STATES HE HAS SOME WEAKNESS TO HIS LLE FROM PREVIOUS CVA. USING URNAL AT BEDSIDE. CALL LIGHT IN REACH. PATIENT EDUCATED ON 3RD DEGREE HEART BLOCK AND POSSIBLE SYMPTOMS.
--- NOTE | 2022-07-06 17:05 | NUR ---
THIS RN DISCUSSED "EXTERNAL PACING" ORDER WITH DR. CHARLTON AND ASKED FOR SPECIFIC PARAMETERS TO BE PLACED ON ORDER OF WHEN TO START PACING AND ANY MEDICATIONS NEEDED FOR PATIENTS SYMPTOMS DURING PACING. NO NEW ORDERS FOR THIS RN TO PLACE. ZOLL AT BEDSIDE. DR. CHARLTON ASKED FOR EXTERNAL PACING TO BE STARTED WHEN PATIENT BECOMES SYMPTOMATIC. PATIENT NOT SYMPTOMATIC AT THIS TIME. DR. CHARLTON TO PLACE MORE SPECIFIC ORDERS WITHIN A NURSE NOTIFY ORDER. PATIENT EDUCATED ON REASONING FOR ZOLL AT BEDSIDE. DENIES CHEST PAIN/PRESSURE, DIZZINESS AND NAUSEA. STATES HE IS FEELING " MY NORMAL SELF". DAUGHTER AT BEDSIDE. CALL LIGHT IN REACH. WATCHING TV IN BED AT THIS TIME. BP STABLE. REMAINS ON ROOM AIR. BLOOD SUGAR CONTINUES TO REMAINS STABLE. K TRENDING DOWN.
--- NOTE | 2022-07-06 18:24 | NUR ---
SHIFT SUMMARY: SEE PREVIOUS NOTE FOR UPDATES. NO ACUTE CHANGES. DR. BIA LORD CALL AND PATIENT ABLE TO DISCUSS QUESTIONS CONCERNING PACER AND HIGH POTASSIUM. DAUGHTER AT BEDSIDE AND DAUGHTER IN LAW MARLYS UPDATED VIA PHONE. VITAL SIGNS REMAIN STABLE. REMAINS IN 3RD DEGREE HEART BLOCK, ASYMPTOMATIC HR 40-50'S. CALLING FOR NEEDS. EATING AND VOIDING WNL.
--- NOTE | 2022-07-06 20:00 | NUR ---
ASSUMED CARE OF PT AT 1915. REPORT RECEIVED AT BEDSIDE. PT PRESENTS IN BED. ALERT AND ORIENTED. PLEASANT AND COOPERATIVE WITH CARE AND ASSESSMENT. NO COMPLAINTS OF CHEST PAIN OR PRESSURE. NO DYSPNEA. PER MONITOR, PT IN 3RD DEGREE HEART BLOCK. ASYMPTOMATIC. WILL REVIEW CHART AND PLAN OF CARE FOR THIS PT.
--- NOTE | 2022-07-07 01:28 | NUR ---
SPOKE WITH PT'S DAUGHTER, HAYDE PER TELEPHONE. UPDATE GIVEN. ANSWERED QUESTIONS AND CONCERNS. PT REMAINS IN BED. VOIDS Q.S. DOES HAVE SOME EXERTIONAL DYSPNEA. ASYMPTOMATIC WITH CONTINUED 3RD DEGREE HEART BLOCK. ZOLL REMAINS AT BEDSIDE. HAVE DONE TEACHING WITH PT ON PLAN OF CARE.
[2022-07-07 05:15] LABS: Albumin, Blood 2.6 g/dL (3.4-5.0); Anion Gap 4 mmol/L (6-16); Blood Urea Nitrogen 80 mg/dL (8-24); Bun/Creatinine Ratio 24.2 (12.0-20.0); CO2, Blood 27 mmol/L (21-32); Calcium, Blood 8.9 mg/dL (8.5-10.1); Chloride, Blood 107 mmol/L (98-108); Glomerular Filtration Rate 18 (60-); Glucose, Blood 136 mg/dL (70-99); Phosphorus, Blood 4.4 mg/dL (2.5-4.9); Potassium, Blood 5.3 mmol/L (3.5-5.5); Sodium, Blood 138 mmol/L (136-145)
--- NOTE | 2022-07-07 06:47 | NUR ---
PT CONTINUES WITHOUT COMPLAINTS OF CHEST PAIN OR PRESSURE. HAS BEEN INDEPENDENT IN BED. ABLE TO TURN HIMSELF. WILL CONTINUE TO MONITOR PT, AND WILL REPORT OFF TO ONCOMING RN.
--- NOTE | 2022-07-07 11:42 | NUR ---
THIS RN CONFIRMED WITH DR. HARVEY THAT IT WAS OKAY TO GIVE PO ELIQUIS THIS MORNING PRIOR TO PACER ON 07/07. WILL BE NPO AT MIDNIGHT.
--- NOTE | 2022-07-07 13:22 | NUR ---
PATIENT ALERT AND ORIENTED X4. IN GOOD SPIRITS AND TALKATIVE. FAMILY AT BEDSIDE THROUGHOUT THE MORNING. SBA TO BATHROOM. PREVIOUS CVA WITH SOME RESIDUAL LEFT SIDED LOWER EXTREMITY WEAKNESS, USES CANE AT BASELINE. EATING AND VOIDING WNL. ON ROOM AIR SATING ABOVE 95%. DENIES SOB. TELE SHOWING 3RD DEGREE HEART BLOCK WITH HR 50'S. BP REMAINS STABLE. DENIES ANY 3RD DEGREE HEART BLOCK SYMPTOMS. DENIES CHEST PAIN/PRESSURE. DENIES DIZZINESS. ZOLL AT BEDSIDE. SEE PREVIOUS NOTE FOR ELIQUIS ADMINISTRATION 3/5 AM. ACHS BLOOD SUGARS. FAMILY AT BEDSIDE WITH PATIENT PLAYING CARDS. DENIES NEEDS AT THIS TIME.
--- NOTE | 2022-07-07 17:55 | NUR ---
SHIFT SUMMARY: NO ACUTE CHANGES. PATIENT REMAINS ALERT AND ORIENTED X4. ON ROOM AIR. TELE CONTINUES TO SHOW INTERMIT 3RD DEGREE HEART BLOCK. PATIENT REMAINS ASYMPTOMATIC. BP STABLE. DENIES ANY PAINS/ACHES. EATING AND VOIDING WNL. PLAN FOR PACER TOMORROW, NPO A MIDNIGHT. FAMILY IN ROOM AND UPDATE THROUGHOUT DAY. ACHS BLOOD SUGARS. ABLE TO TURN AND MOVE SELF IND IN ROOM. CALLING FOR SBA TO BATHROOM.
--- NOTE | 2022-07-07 21:32 | NUR ---
ASSUMED PT CARE FORM CULLEN BOLANOS ON . PT IS A&OX4. DENIES ANY SOB OR CHEST PAIN. HR IS SINUS OSMAN IN THE 50'S. O2 SATS IN HIGH 90'S ON RA. ABLE TO TAKE EVENING MEDICATIONS WITHOUT DIFFICULTY. PER DAYSHI PARTS ADVISOR INSTRUCTIONS ARE NOT TO HOLD ELIQUIS, EVENING DOSE GIVEN PER INSTRUCTIONS OF CARDIOLOGY. PT VOIDING WITHOUT DIFFICUTLY IN URINAL. DENIES FURTHER NEEDS AT THIS TIME. CALL LIGHT IN REACH. BED ALARM ON.
--- NOTE | 2022-07-08 05:22 | NUR ---
SHIFT SUMMARY: PT HAS HAD NO ACUTE CHANGES DURING THIS SHIFT. HR REMAINS BRADYCARDIC IN THE 50'S, ASYMPTOMATIC. DENIES CHEST PAIN OR SOB. VOIDING IN URINAL WITHOUT DIFFICULTY. NPO AT MN PER ORDERS. CALL LIGHT IN REACH. BED ALARM ON.
[2022-07-08 08:10] LABS: Albumin, Blood 2.6 g/dL (3.4-5.0); Anion Gap 3 mmol/L (6-16); Blood Urea Nitrogen 82 mg/dL (8-24); Bun/Creatinine Ratio 24.7 (12.0-20.0); CO2, Blood 26 mmol/L (21-32); Calcium, Blood 8.4 mg/dL (8.5-10.1); Chloride, Blood 111 mmol/L (98-108); Creatinine, Blood 3.32 mg/dL (0.60-1.20); Glomerular Filtration Rate 18 (60-); Glucose, Blood 148 mg/dL (70-99); Phosphorus, Blood 3.7 mg/dL (2.5-4.9); Potassium, Blood 5.2 mmol/L (3.5-5.5); Sodium, Blood 140 mmol/L (136-145)
--- NOTE | 2022-07-08 17:55 | NUR ---
SHIFT SUMMARY: PT A&Ox4, COOPERATIVE W/CARE, ABLE TO MAKE NEEDS KNOWN. O2 SATS MAINTAINED >93% ON RA. LAUNDRY WASHER TO ROOM FOR EVALUATION THIS AM, DETERMINED PT DOES NOT NEED PACEMAKER PLACEMENT AT THIS TIME. CURRENT PLAN IS TO MONITOR PT OVERNIGHT, POSSIBLE DC TOMORROW W/HEART MONITOR AND F/UP OUTPT. NO ACUTE CARDIAC EVENTS THIS SHIFT, PT DENIES CP, HR MID 40s-60s. PT SHOWERS INDEPENDENTLY TODAY, ALSO AMBULATES IN HALLWAY W/SBA AND FWW (TOLERATES BOTH WELL). MULTIPLE FAMILY MEMBERS TO/FROM ROOM T/OUT DAY AND UPDATED ON PLAN OF CARE. AT THIS TIME, PT SITTING AT BEDSIDE AND PLAYING GAMES W/VISITORS. WILL CONTINUE TO MONITOR AND TREAT ACCORDINGLY UNTIL CHANGE OF SHIFT.
--- NOTE | 2022-07-08 21:42 | NUR ---
ASSUMED PT CARE FORM EVITA BOLANOS ON . PT IS A&OX4. DENIES ANY SOB OR CHEST PAIN. O2 SATS IN MID 90'S ON RA. HR IS BRADYCARTIC IN 40-50'S, REMAINS ASYMPTOMATIC AT THIS TIME. VOIDING WIHTOUT DIFFICULTY IN URINAL. ABLE TO TAKE EVENING MEDICATIONS WHOLE WITH WATER. DENIES FURTHER NEEDS AT THIS TIME. CALL LIGHT IN REACH.
[2022-07-09 08:35] LABS: Albumin, Blood 2.7 g/dL (3.4-5.0); Anion Gap 3 mmol/L (6-16); Blood Urea Nitrogen 88 mg/dL (8-24); Bun/Creatinine Ratio 26.4 (12.0-20.0); CO2, Blood 26 mmol/L (21-32); Calcium, Blood 8.6 mg/dL (8.5-10.1); Chloride, Blood 109 mmol/L (98-108); Creatinine, Blood 3.33 mg/dL (0.60-1.20); Glomerular Filtration Rate 18 (60-); Glucose, Blood 152 mg/dL (70-99); Phosphorus, Blood 4.3 mg/dL (2.5-4.9); Potassium, Blood 5.1 mmol/L (3.5-5.5); Sodium, Blood 138 mmol/L (136-145)
--- NOTE | 2022-07-09 09:47 | NUR ---
DISTRIBUTOR SALES CONSULTANT 2 STUDENT
[2022-07-09] MEDS ORDERED: AMLO5 PO (10:59)
[2022-07-09] MEDS ORDERED: SENN187 PO (11:00)
[2022-07-09] MEDS ORDERED: ELIQUIS5 M2 PO (11:00)
[2022-07-09] MEDS ORDERED: BASAGLAR K100 UNIT/1 SC (11:04)
[2022-07-09] MEDS ORDERED: LOKELMA10 GM PO (11:05)
--- NOTE | 2022-07-09 12:27 | NUR ---
DISCHARGE: PT HAS BEEN CLEARED FOR DISCHARGE HOME. IV ACCESS DC'd WNL, PT DRESSES SELF. DC PAPERWORK AND INSTRUCTIONS PROVIDED TO PT AND FAMILY. ALL QUESTIONS ANSWERED. PT ESCORTED FROM UNIT VIA W/C W/OUT INCIDENT.
== END 2022-07-09 12:05 | disposition home or self-care (01) | DRG 280 ==
LOC: ER 14:52 → MEDS 18:02 → PCU 18:02 → MEDS 07-01 16:04 → PCU 07-06 13:30
PROVIDERS: Internal Medicine; Internal Medicine Cardiovascular Disease; Internal Medicine Nephrology; Physician Assistant; ADMIT Hospitalist
DX: I13.2 Hypertensive heart and chronic kidney disease with heart failure and with stage 5 chronic kidney disease, or end stage renal disease (principal); I21.A1 Myocardial infarction type 2; I26.09 Other pulmonary embolism with acute cor pulmonale; I50.31 Acute diastolic (congestive) heart failure; I24.9 Acute ischemic heart disease, unspecified; N18.5 Chronic kidney disease, stage 5; N17.9 Acute kidney failure, unspecified; K62.5 Hemorrhage of anus and rectum; I44.1 Atrioventricular block, second degree; I35.0 Nonrheumatic aortic (valve) stenosis; E87.5 Hyperkalemia; I27.21 Secondary pulmonary arterial hypertension; I50.811 Acute right heart failure; K64.9 Unspecified hemorrhoids; I25.10 Atherosclerotic heart disease of native coronary artery without angina pectoris; I49.5 Sick sinus syndrome; E11.21 Type 2 diabetes mellitus with diabetic nephropathy; D63.1 Anemia in chronic kidney disease; E88.09 Other disorders of plasma-protein metabolism, not elsewhere classified; E78.5 Hyperlipidemia, unspecified; Z79.899 Other long term (current) drug therapy; Z95.5 Presence of coronary angioplasty implant and graft; Z86.73 Personal history of transient ischemic attack (TIA), and cerebral infarction without residual deficits; Z85.46 Personal history of malignant neoplasm of prostate; Z90.49 Acquired absence of other specified parts of digestive tract; Z87.891 Personal history of nicotine dependence; Z98.890 Other specified postprocedural states; Z79.02 Long term (current) use of antithrombotics/antiplatelets; Z92.3 Personal history of irradiation; I25.2 Old myocardial infarction; Z79.84 Long term (current) use of oral hypoglycemic drugs
CPT/HCPCS: 36415; 71046; 78580; 80048; 80053; 80069; 82306; 82570; 82947; 83880; 83970; 84132; 84156; 84439; 84443; 84484; 85025; 85027; 85520; 85730; 93005; 93010; 93246; 93306; 93970; 94760; 94762; 96365; 96375; 99285-25; A9270; A9540; J0360; J0610; J1644; J1815; J1940; J7799

== ENCOUNTER 2023-02-01 09:22 | Emergency (ER) | payer MEDICARE, OTHER ==
[~2023-02-01] VITALS: Ht 170.2 cm; Wt 77.1 kg
[~2023-02-01 09:22] MED LIST changes: +AMLO5 PO; +ATOR40TA PO; +Aspir 8181 MG PO; +B-12500 MC2 PO; +BASAGLAR K100 UNIT/1 SC; +CEPH500 PO; +ELIQUIS5 M2 PO; +ENAL10 PO; +FERSU300 PO; +GABAPENTIN PO; +GABAPENTIN600 MG PO; +LOKELMA10 GM PO; +METO50ER PO; +SENN187 PO; +Vitamin D1000 UNI1 PO; +[UNRECOGNIZED DRUG - OTHER] PO; +[UNRECOGNIZED DRUG - OTHER] PO
[2023-02-01 09:48] LABS: Source, Urine Clean Catch
[2023-02-01 09:51] LABS: BASOPHILS ABSOLUTE AUTO 0.03 K/mm3 (0.00-0.23); BASOPHILS PERCENT AUTO 1 % (0-2); EOSINOPHILS ABSOLUTE AUTO 0.13 K/mm3 (0.00-0.68); EOSINOPHILS PERCENT AUTO 2 % (0-6); Hematocrit 34.1 % (37.0-53.0); Hemoglobin 11.3 g/dL (13.5-17.5); IMMATURE GRAN ABSOLUTE AUTO 0.01 K/mm3 (0.00-0.10); IMMATURE GRAN PERCENT AUTO 0 % (0-1); LYMPHOCYTES ABSOLUTE AUTO 0.81 K/mm3 (0.84-5.20); LYMPHOCYTES PERCENT AUTO 15 % (21-46); MONOCYTES ABSOLUTE AUTO 0.51 K/mm3 (0.16-1.47); MONOCYTES PERCENT AUTO 10 % (4-13); Mean Corpuscular HGB 31.4 pg (26.0-34.0); Mean Corpuscular HGB Conc 33.1 g/dL (31.5-36.5); Mean Corpuscular Volume 95 fL (80-100); Mean Platelet Volume 10.4 fL (9.1-12.4); NEUTROPHILS ABSOLUTE AUTO 3.82 K/mm3 (1.96-9.15); NEUTROPHILS PERCENT AUTO 72 % (41-73); Platelet Count 182 K/mm3 (150-400); RDW Coefficient Variation 12.2 % (11.7-14.2); RDW Standard Deviation 42.5 fL (35.1-46.3); White Blood Cell Count 5.31 K/mm3 (4.00-11.30)
[2023-02-01 10:00] VITALS: BP 149/72
[2023-02-01 10:03] LABS: Albumin/Globulin Ratio 0.9 (0.8-1.8); Bilirubin, Total 0.5 mg/dL (0.1-1.0); Bun/Creatinine Ratio 23.6 (12.0-20.0); Calcium, Blood 8.4 mg/dL (8.5-10.1); Creatinine, Blood 2.58 mg/dL (0.60-1.20); Globulin, Blood 3.3 g/dL (2.2-4.0); Potassium, Blood 4.9 mmol/L (3.5-5.5); Total Protein, Blood 6.3 g/dL (6.4-8.2)
[2023-02-01 10:04] LABS: Appearance, Urine Clear (Clear); Bilirubin, Urine Neg (Neg); Blood, Urine 2+ (Neg); Color, Urine Yellow (P-Yellow); Glucose Qualitative, Urine 1+ (Neg); Ketones, Urine Neg (Neg); Leukocyte Esterase, Urine Neg (Neg); Nitrite, Urine Neg (Neg); Protein, Urine 3+ (Neg); Specific Gravity, Urine 1.015 (1.003-1.022); Urobilinogen, Urine NORM (Normal)
[2023-02-01 10:31] LABS: Amorphous Light (0-Heavy); Bacteria Rare /hpf; Mucus Light (0-Heavy); Squamous Epithelial Cells Not Seen /hpf (Few); White Blood Cells, Urine Not Seen /hpf (0-5)
[2023-02-01] MEDS ORDERED: Percocet 5-3251 EACH PO (11:42)
== END 2023-02-01 12:05 | disposition home or self-care (01) ==
LOC: ER 09:22
PROVIDERS: Student in an Organized Health Care Education/Training Program
DX: T14.8XXA Other injury of unspecified body region, initial encounter (principal); R10.9 Unspecified abdominal pain; I10 Essential (primary) hypertension; I25.10 Atherosclerotic heart disease of native coronary artery without angina pectoris; I25.2 Old myocardial infarction; E11.9 Type 2 diabetes mellitus without complications; Z86.73 Personal history of transient ischemic attack (TIA), and cerebral infarction without residual deficits; X58.XXXA Exposure to other specified factors, initial encounter
CPT/HCPCS: 74176; 80053; 81001; 83690; 85025; 99285-25; A9270

== ENCOUNTER 2024-09-15 15:24 | Observation (INO) | payer MEDICARE, OTHER ==
[~2024-09-15] VITALS: Ht 175.3 cm; Wt 93.0 kg
[~2024-09-15 15:24] MED LIST changes: +FURO20 PO; +JARDIANCE10 MG PO; +Lopressor 25 mg25 MG PO; +Percocet 5-3251 EACH PO
[2024-09-15 16:56] LABS: BASOPHILS ABSOLUTE AUTO 0.03 K/mm3 (0.00-0.23); BASOPHILS PERCENT AUTO 1 % (0-2); EOSINOPHILS PERCENT AUTO 2 % (0-6); Hemoglobin 10.5 g/dL (13.5-17.5); IMMATURE GRAN ABSOLUTE AUTO 0.02 K/mm3 (0.00-0.10); IMMATURE GRAN PERCENT AUTO 0 % (0-1); LYMPHOCYTES ABSOLUTE AUTO 0.61 K/mm3 (0.84-5.20); LYMPHOCYTES PERCENT AUTO 10 % (21-46); MONOCYTES ABSOLUTE AUTO 0.45 K/mm3 (0.16-1.47); MONOCYTES PERCENT AUTO 8 % (4-13); Mean Corpuscular HGB 31.7 pg (26.0-34.0); Mean Corpuscular HGB Conc 32.8 g/dL (31.5-36.5); Mean Corpuscular Volume 97 fL (80-100); Mean Platelet Volume 10.1 fL (9.1-12.4); NEUTROPHILS ABSOLUTE AUTO 4.63 K/mm3 (1.96-9.15); NEUTROPHILS PERCENT AUTO 79 % (41-73); Platelet Count 134 K/mm3 (150-400); RDW Coefficient Variation 12.9 % (11.7-14.2); RDW Standard Deviation 45.7 fL (35.1-46.3); Red Blood Cell Count 3.31 M/mm3 (4.30-5.90); White Blood Cell Count 5.84 K/mm3 (4.00-11.30)
[2024-09-15 17:19] LABS: Bun/Creatinine Ratio 19.5 (12.0-20.0); Calcium, Blood 8.8 mg/dL (8.5-10.1); Creatinine, Blood 3.64 mg/dL (0.60-1.20); Magnesium, Blood 2.1 mg/dL (1.6-2.4); Potassium, Blood 4.9 mmol/L (3.5-5.5)
[2024-09-15] MEDS ORDERED: Furosemide 10 MG/ML 4ML Vial IV ONE (17:50)
[2024-09-15] MEDS ORDERED: Ondansetron HCl 2 MG / ML 2ML Vial IV PRN (20:40)
[2024-09-15] MEDS ORDERED: Insulin Human Lispro 100 Units/ML 3ML Syringe SC SCH (21:00)
[2024-09-15] MEDS ORDERED: Heparin Sodium,Porcine 5,000 UNIT/0.5 ML SDV SC SCH (21:00)
[2024-09-15 21:01] LABS: Base Excess Venous -6.5 mmol/L; Bicarbonate Venous 19.8 mmol/L (24.0-30.0); PCO2 Venous 31.9 mmHg (38-42); pH Blood Venous 7.38 (7.34-7.37)
[2024-09-15 22:21] VITALS: BP 160/69
[2024-09-16 03:34] VITALS: BP 150/70
[2024-09-16 05:35] LABS: Hematocrit 31.4 % (37.0-53.0); Hemoglobin 10.1 g/dL (13.5-17.5); Mean Corpuscular HGB 30.6 pg (26.0-34.0); Mean Corpuscular HGB Conc 32.2 g/dL (31.5-36.5); Mean Corpuscular Volume 95 fL (80-100); Platelet Count 147 K/mm3 (150-400); RDW Standard Deviation 45.1 fL (35.1-46.3); White Blood Cell Count 4.09 K/mm3 (4.00-11.30)
[2024-09-16 06:14] LABS: Magnesium, Blood 2.2 mg/dL (1.6-2.4)
[2024-09-16 06:15] LABS: Bun/Creatinine Ratio 18.4 (12.0-20.0); Creatinine, Blood 3.8 mg/dL (0.60-1.20)
--- NOTE | 2024-09-16 06:23 | NUR ---
SHIFT SUMMARY: Pt is admitted for CHF exacerbation and is a full code. Came to the floor from the ED about 2210. Was able to transfer self with SBA from bed to bed. Admitting RN found no skin issues. Is alert and able to make needs known. Denies pain or discomfort when asked. Seth noted v-paced at 66. Has been NPO starting at midnight due to possible ECHO.
[2024-09-16 07:29] VITALS: BP 157/67
[2024-09-16] MEDS ORDERED: Metoprolol Succinate 25 MG TABCR PO SCH (09:00)
[2024-09-16] MEDS ORDERED: Atorvastatin 40 MG Tab PO SCH (09:00)
[2024-09-16] MEDS ORDERED: Furosemide 10 MG/ML 4ML Vial IV SCH (09:00)
[2024-09-16] MEDS ORDERED: Aspirin 81 MG Chew PO SCH (09:00)
[2024-09-16] MEDS ORDERED: TORSE20 PO (14:47)
--- NOTE | 2024-09-16 15:18 | NUR ---
DISCHARGE NOTE PT DISCHARGED TO HOME, PICKED UP BY HIS FAMILY. IV REMOVED. TELE RETURNED. DISCHARGE INFORMATION AND EDUCATION PROVIDED. MEDICATIONS FAXED TO THE [facility] OF HIS CHOICE. PERSONAL BELONGINGS RETURNED.
== END 2024-09-16 15:12 | disposition home or self-care (01) ==
LOC: ER 15:24 → MEDS 15:25
PROVIDERS: Emergency Medicine; Nurse Practitioner Acute Care; ADMIT Internal Medicine
DX: I13.0 Hypertensive heart and chronic kidney disease with heart failure and stage 1 through stage 4 chronic kidney disease, or unspecified chronic kidney disease (principal); I50.23 Acute on chronic systolic (congestive) heart failure; E11.22 Type 2 diabetes mellitus with diabetic chronic kidney disease; N18.4 Chronic kidney disease, stage 4 (severe); I25.10 Atherosclerotic heart disease of native coronary artery without angina pectoris; I25.2 Old myocardial infarction; E78.5 Hyperlipidemia, unspecified; Z79.4 Long term (current) use of insulin; Z86.73 Personal history of transient ischemic attack (TIA), and cerebral infarction without residual deficits; Z95.0 Presence of cardiac pacemaker
CPT/HCPCS: 36415; 71045; 80048; 82803; 82947; 83605; 83735; 83880; 84484; 85025; 85027; 93005; 93010; 93306; 96372; 96374; 96376; 99285-25; A9270; G0378; J1644; J1938

== ENCOUNTER 2025-01-15 17:38 | Emergency (ER) | payer MEDICARE, OTHER ==
[~2025-01-15] VITALS: Ht 172.7 cm; Wt 81.7 kg
[~2025-01-15 17:38] MED LIST changes: +TORSE20 PO
[2025-01-15 18:15] VITALS: BP 141/64
[2025-01-15] MEDS ORDERED: NS 1,000 ML IV SCH (18:20)
[2025-01-15] MEDS ORDERED: Dexamethasone Sod Phos 10 MG/ML 1ML VIAL PO ONE (18:25)
[2025-01-15 18:37] LABS: BASOPHILS ABSOLUTE AUTO 0.02 K/mm3 (0.00-0.23); BASOPHILS PERCENT AUTO 0 % (0-2); EOSINOPHILS ABSOLUTE AUTO 0.01 K/mm3 (0.00-0.68); EOSINOPHILS PERCENT AUTO 0 % (0-6); Hematocrit 32.0 % (37.0-53.0); Hemoglobin 10.6 g/dL (13.5-17.5); IMMATURE GRAN ABSOLUTE AUTO 0.03 K/mm3 (0.00-0.10); IMMATURE GRAN PERCENT AUTO 1 % (0-1); LYMPHOCYTES ABSOLUTE AUTO 0.26 K/mm3 (0.84-5.20); LYMPHOCYTES PERCENT AUTO 6 % (21-46); MONOCYTES ABSOLUTE AUTO 0.65 K/mm3 (0.16-1.47); MONOCYTES PERCENT AUTO 15 % (4-13); Mean Corpuscular HGB Conc 33.1 g/dL (31.5-36.5); Mean Corpuscular Volume 94 fL (80-100); NEUTROPHILS ABSOLUTE AUTO 3.50 K/mm3 (1.96-9.15); NEUTROPHILS PERCENT AUTO 78 % (41-73); NRBC ABSOLUTE 0.00 K/mm3 (0.00-0.02); NRBC Auto 0.0 /100 WBC (0.0-0.2); Platelet Count 107 K/mm3 (150-400); RDW Coefficient Variation 13.2 % (11.7-14.2); RDW Standard Deviation 45.3 fL (35.1-46.3)
[2025-01-15 18:57] LABS: Anion Gap 15.0 mmol/L (3-11); Blood Urea Nitrogen 90.0 mg/dL (8-24); CO2, Blood 19.0 mmol/L (21-32); Calcium, Blood 8.2 mg/dL (8.5-10.1); Chloride, Blood 110.0 mmol/L (98-108); Creatinine, Blood 4.17 mg/dL (0.60-1.20); Glucose, Blood 144.0 mg/dL (70-99); Potassium, Blood 4.2 mmol/L (3.5-5.5); Sodium, Blood 140.0 mmol/L (136-145)
[2025-01-15 19:29] LABS: Influenza A, PCR NEGATIVE (NEGATIVE); Influenza B, PCR NEGATIVE (NEGATIVE); Resp Syncytial Virus, PCR NEGATIVE (NEGATIVE)
[2025-01-15 20:42] LABS: SARS-Cov-2 (COVID-19) PCR, MMC POSITIVE (NEGATIVE)
== END 2025-01-15 22:26 | disposition home or self-care (01) ==
LOC: ER 17:38
PROVIDERS: Student in an Organized Health Care Education/Training Program
DX: U07.1 COVID-19 (principal); E11.22 Type 2 diabetes mellitus with diabetic chronic kidney disease; I12.9 Hypertensive chronic kidney disease with stage 1 through stage 4 chronic kidney disease, or unspecified chronic kidney disease; N18.9 Chronic kidney disease, unspecified; D64.9 Anemia, unspecified; Z79.82 Long term (current) use of aspirin; Z79.4 Long term (current) use of insulin
CPT/HCPCS: 71046; 80048; 85025; 87637; 96374; 99284-25; J1100; J7030

== ENCOUNTER 2025-01-21 07:11 | Inpatient (IN) | payer MEDICARE, OTHER ==
[~2025-01-21] VITALS: Ht 172.7 cm; Wt 77.0 kg
[2025-01-21] MEDS ORDERED: FUROSEMIDE20 MG PO (08:19)
[2025-01-21] MEDS ORDERED: CARVEDILOL6.25 MG PO (08:19)
[2025-01-21] MEDS ORDERED: ELIQUIS2.5 MG PO (08:20)
[2025-01-21 08:22] LABS: pH Blood Venous 7.34 (7.34-7.37)
[2025-01-21 08:35] LABS: BASOPHILS ABSOLUTE AUTO 0.00 K/mm3 (0.00-0.23); BASOPHILS PERCENT AUTO 0 % (0-2); EOSINOPHILS ABSOLUTE AUTO 0.03 K/mm3 (0.00-0.68); EOSINOPHILS PERCENT AUTO 1 % (0-6); Hematocrit 32.5 % (37.0-53.0); Hemoglobin 10.8 g/dL (13.5-17.5); IMMATURE GRAN ABSOLUTE AUTO 0.04 K/mm3 (0.00-0.10); IMMATURE GRAN PERCENT AUTO 1 % (0-1); LYMPHOCYTES ABSOLUTE AUTO 0.50 K/mm3 (0.84-5.20); LYMPHOCYTES PERCENT AUTO 13 % (21-46); MONOCYTES ABSOLUTE AUTO 0.30 K/mm3 (0.16-1.47); MONOCYTES PERCENT AUTO 8 % (4-13); Mean Corpuscular HGB Conc 33.2 g/dL (31.5-36.5); Mean Corpuscular Volume 94 fL (80-100); NEUTROPHILS ABSOLUTE AUTO 2.92 K/mm3 (1.96-9.15); NEUTROPHILS PERCENT AUTO 77 % (41-73); NRBC ABSOLUTE 0.00 K/mm3 (0.00-0.02); NRBC Auto 0.0 /100 WBC (0.0-0.2); Platelet Count 99 K/mm3 (150-400); RDW Coefficient Variation 13.2 % (11.7-14.2); RDW Standard Deviation 45.1 fL (35.1-46.3)
[2025-01-21] MEDS ORDERED: Ondansetron HCl 2 MG / ML 2ML Vial IV ONE (08:40)
[2025-01-21 08:53] LABS: Alanine Aminotransfer (ALT/SGP 50.0 U/L (12-78); Albumin, Blood 2.8 g/dL (3.4-5.0); Albumin/Globulin Ratio 0.8 (0.8-1.8); Anion Gap 11.0 mmol/L (3-11); Aspartate Aminotrans (AST/SGOT 34.0 U/L (12-37); Bilirubin, Total 0.7 mg/dL (0.1-1.0); Blood Urea Nitrogen 83.0 mg/dL (8-24); CO2, Blood 18.0 mmol/L (21-32); Calcium, Blood 8.2 mg/dL (8.5-10.1); Chloride, Blood 116.0 mmol/L (98-108); Creatinine, Blood 3.93 mg/dL (0.60-1.20); Globulin, Blood 3.3 g/dL (2.2-4.0); Glucose, Blood 122.0 mg/dL (70-99); Potassium, Blood 4.1 mmol/L (3.5-5.5); Sodium, Blood 141.0 mmol/L (136-145); Total Protein, Blood 6.1 g/dL (6.4-8.2)
[2025-01-21] MEDS ORDERED: Dexamethasone Sod Phos 10 MG/ML 1ML VIAL IV ONE (09:25)
[2025-01-21] MEDS ORDERED: FLU VACC TS2025(65UP)/MF59C/PF 45 MCG/0.5 ML SYRINGE IM SCH (13:05)
[2025-01-21] MEDS ORDERED: Heparin Sodium,Porcine 5,000 UNIT/0.5 ML SDV SC SCH (14:00)
[2025-01-21] MEDS ORDERED: Amiodarone HCl 450 MG in NS 250 ML IV SCH (16:00)
[2025-01-21] MEDS ORDERED: CefTRIAXone Sodium 1,000 MG in NS 100 ML IV SCH (17:00)
[2025-01-21 17:18] VITALS: BP 154/63
--- NOTE | 2025-01-21 17:44 | NUR ---
ADMIT PT ARRIVED TO ICU 14 VIA ER BED AT 1711. PT IS AWAKE, ALERT, AND ORIENTED. PT DENIES PAIN OR DISCOMFORT AT REST. PT REPORTS SOB AT REST, BUT IMPROVED FROM EARLIER. VITAL SIGNS STABLE. PT ON ROOM AIR. HR PACED AT 60-63. IV TO RFA SALINE LOCKED. PT ABLE TO USE URINAL TO VOID INDEPENDENTLY. NO FAMILY AT BEDSIDE AT THIS TIME. WILL CONTINUE TO MONITOR AND REPORT OFF TO ONCOMING RN.
[2025-01-21 18:00] VITALS: BP 153/62
[2025-01-21] MEDS ORDERED: Insulin Glargine 100 Unit/ML 3 ML SYR SC SCH (21:00)
[2025-01-21] MEDS ORDERED: Insulin Human Lispro 100 Units/ML 3ML Syringe SC SCH (21:00)
[2025-01-22] VITALS: BP 148/70
[2025-01-22 04:00] VITALS: BP 145/72
[2025-01-22 04:00] LABS: Anion Gap 13.0 mmol/L (3-11); Blood Urea Nitrogen 91.0 mg/dL (8-24); CO2, Blood 19.0 mmol/L (21-32); Calcium, Blood 7.7 mg/dL (8.5-10.1); Chloride, Blood 111.0 mmol/L (98-108); Creatinine, Blood 3.87 mg/dL (0.60-1.20); Glucose, Blood 413.0 mg/dL (70-99); Potassium, Blood 4.6 mmol/L (3.5-5.5); Sodium, Blood 138.0 mmol/L (136-145)
[2025-01-22 07:05] VITALS: BP 147/70
[2025-01-22] MEDS ORDERED: Insulin NPH 10 Unit/0.1ML (Single Dose) SC ONE (08:00)
[2025-01-22] MEDS ORDERED: Insulin NPH 100 Unit / ML 10ML Vial SC ONE (08:10)
[2025-01-22] MEDS ORDERED: Cholecalciferol 1000 Unit Tablet (=25MCG) PO SCH (09:00)
[2025-01-22 11:09] VITALS: BP 147/71
[2025-01-22] MEDS ORDERED: Insulin Human Lispro 100 Units/ML 3ML Syringe SC SCH (16:30)
--- NOTE | 2025-01-22 16:32 | NUR ---
SHIFT SUMMARY: PT ALERT AND ORIENTED X4, ABLE TO FOLLOW COMMANDS AND MAKE NEEDS KNOWN. STRENGTH EQUAL BILATERALLY. EGEGIK. BP STABLE. HR PACED 60. NO TELE EVENTS THIS SHIFT. DENIES CP/PRESSURE. AFEBRILE. SPO2 >96% ON ROOM AIR. LUNG SOUNDS CLEAR THROUGHOUT. PULSES PALPABLE. ABD SOFT, NON TENDER, BOWEL SOUNDS +. PT WITH ONE BM THIS SHIFT. ABLE TO VOID WITH URINAL AT BEDSIDE. PT ONE PERSON ASSIST WITH FWW TO AND FROM BATHROOM. CBG RANGED [phone] THIS SHIFT, SLIDING SCALE ADJUSTED, SEE EMAR. DENIES PAIN. BED IN LOW, CALL LIGHT IN REACH, WILL REPORT TO ONCOMING RN.
[2025-01-22 16:45] VITALS: BP 151/69
[2025-01-22 20:00] VITALS: BP 162/83
[2025-01-22] MEDS ORDERED: Insulin Glargine 100 Unit/ML 3 ML SYR SC SCH (21:00)
[2025-01-23] VITALS: BP 139/63
[2025-01-23] MEDS ORDERED: Ondansetron HCl 2 MG / ML 2ML Vial IV PRN (02:00)
[2025-01-23 04:00] VITALS: BP 145/64
[2025-01-23 04:14] LABS: Anion Gap 11.0 mmol/L (3-11); Blood Urea Nitrogen 92.0 mg/dL (8-24); CO2, Blood 21.0 mmol/L (21-32); Calcium, Blood 8.0 mg/dL (8.5-10.1); Chloride, Blood 114.0 mmol/L (98-108); Creatinine, Blood 3.84 mg/dL (0.60-1.20); Glucose, Blood 108.0 mg/dL (70-99); Potassium, Blood 4.4 mmol/L (3.5-5.5); Sodium, Blood 142.0 mmol/L (136-145)
[2025-01-23 07:59] VITALS: BP 148/60
[2025-01-23 11:26] VITALS: BP 143/69
--- NOTE | 2025-01-23 11:48 | NUR ---
REASSESSMENT PT SPENT THE MORNING LAYING IN BED, BUT IS NOW SITTING UP IN THE CHAIR. HE WAS NAUSEOUS THIS MORNING, IMPROVED A LITTLE WITH ZOFRAN. PT STATES HE ISN'T FEELING VERY WELL THIS MORNING COMPARED TO YESTERDAY. LUNGS ARE CLEAR. HE DID COUGH UP A SMALL AMT OF SPUTUM WHEN HE STARTED MOVING AND GOT TO THE CHAIR. SPO2 REMAINS MID 90S ON RA. AV PACED WITH RATE INT HE 60S, MAP ABOVE 65. PT DRANK SOME JUICE THIS MORNING, BUT DIDN'T EAT ANYTHING. PICKING AT LUNCH CURRENTLY. VOIDING USING THE URINAL. SEVERAL FAMILY MEMBERS HAVE BEEN IN AND BEEN UPDATED. DR. ALFONSO ROUNDED AND GAVE ORDER FOR PT TO BE MED WITH TELE STATUS.
[2025-01-23 16:27] VITALS: BP 154/66
--- NOTE | 2025-01-23 17:27 | NUR ---
SHIFT SUMMARY PT HAS CONTINUED TO SAY THAT HIS STOMACH ISN'T FEELING GOOD THROUGHOUT THE DAY, BUT HASN'T BEEN ABLE TO GIVE SPECIFIC INFORMATION. ANTACIDS OFFERED, PT HAD A BM YESTERDAY, ZOFRAN GIVEN FOR NAUSEA TWICE. PT DID EAT HALF OF LUNCH, BUT DIDN'T WANT DINNER. OFFERED AND PROVIDED SOME SOUP THAT PT SAID HE MIGHT SIP ON. PT HAS BEEN ALERT AND ORIENTED, CLEAR LUNGS. HE DID COUGH UP A SMALL AMT OF YELLOW SPUTUM THIS AFTERNOON. SPO2 ABOVE 90 ON RA. AV PACED, MAP ABOVE 65. VOIDING INDEPENDENTLY. SPOKE WITH PT'S PATTI THIS AFTERNOON AND PROVIDED UPDATE.
[2025-01-23 20:00] VITALS: BP 168/65
--- NOTE | 2025-01-23 21:58 | NUR ---
ASSUMPTION OF CARE ASSUMED CARE OF PT AT APPROX 1900. RECEIVED BSR AND MOVED PT TO ICU2. AV PACED RHYTHM ON MONITOR IN MID 60S-MID 70S, BP STABLE WITH MAP >65, SATS >90% ON RA. DROPLET PRECAUTIONS IN PLACE FOR COVID. DENIES SOB, DENIES UNMET NEEDS AT THIS TIME. CALL LIGHT WITHIN REACH.
[2025-01-23] MEDS ORDERED: TORSE20 PO (23:23)
--- NOTE | 2025-01-23 23:40 | NUR ---
SUPPLEMENTAL O2 PT REPORTS SOB, SATS 94% ON RA. PLACED ON 2L NC FOR COMFORT WHILE SLEEPING, SATS NOW AT 96% ON 2L. CALL LIGHT WITHIN REACH.
[2025-01-24] VITALS: BP 148/66
[2025-01-24 03:42] LABS: BASOPHILS ABSOLUTE AUTO 0.01 K/mm3 (0.00-0.23); BASOPHILS PERCENT AUTO 0 % (0-2); EOSINOPHILS ABSOLUTE AUTO 0.02 K/mm3 (0.00-0.68); EOSINOPHILS PERCENT AUTO 0 % (0-6); Hematocrit 31.9 % (37.0-53.0); Hemoglobin 10.5 g/dL (13.5-17.5); IMMATURE GRAN ABSOLUTE AUTO 0.04 K/mm3 (0.00-0.10); IMMATURE GRAN PERCENT AUTO 1 % (0-1); LYMPHOCYTES ABSOLUTE AUTO 0.34 K/mm3 (0.84-5.20); LYMPHOCYTES PERCENT AUTO 7 % (21-46); MONOCYTES ABSOLUTE AUTO 0.35 K/mm3 (0.16-1.47); MONOCYTES PERCENT AUTO 7 % (4-13); Mean Corpuscular HGB Conc 32.9 g/dL (31.5-36.5); Mean Corpuscular Volume 95 fL (80-100); NEUTROPHILS ABSOLUTE AUTO 4.33 K/mm3 (1.96-9.15); NEUTROPHILS PERCENT AUTO 85 % (41-73); NRBC ABSOLUTE 0.00 K/mm3 (0.00-0.02); NRBC Auto 0.0 /100 WBC (0.0-0.2); Platelet Count 106 K/mm3 (150-400); RDW Coefficient Variation 13.2 % (11.7-14.2); RDW Standard Deviation 45.8 fL (35.1-46.3)
[2025-01-24 04:00] VITALS: BP 150/63
[2025-01-24 04:00] LABS: Anion Gap 11.0 mmol/L (3-11); Blood Urea Nitrogen 90.0 mg/dL (8-24); CO2, Blood 22.0 mmol/L (21-32); Calcium, Blood 8.1 mg/dL (8.5-10.1); Chloride, Blood 112.0 mmol/L (98-108); Creatinine, Blood 4.0 mg/dL (0.60-1.20); Glucose, Blood 125.0 mg/dL (70-99); Potassium, Blood 4.4 mmol/L (3.5-5.5); Sodium, Blood 141.0 mmol/L (136-145)
--- NOTE | 2025-01-24 05:45 | NUR ---
SHIFT SUMMARY PT REMAINS A&O X4, AV PACED RHYTHM ON MONITOR WITH RATE OF 60, BP STABLE WITH MAP >65, SATS REMAIN >94% ON 2L NC, DENIES SOB ISOLATION PRECAUTIONS REMAIN IN PLACE FOR COVID. EDUCATED PT ON IMPORTANCE OF REPOSITIONING Q2 HOURS, PT DECLINED TO REPOSITION AT VARIOUS TIMES -SEE ADL NOTES. PT USES URINAL INDEPENDENTLY, DENIES UNMET NEEDS AT THIS TIME, CALL LIGHT WITHIN REACH.
[2025-01-24 08:31] VITALS: BP 149/58
[2025-01-24] MEDS ORDERED: DEXTROMETHORPHAN/BENZOCAINE 1 EACH LOZENGE MT PRN (10:20)
--- NOTE | 2025-01-24 10:41 | NUR ---
NO WHITE PATCHES: PATIENT REPORTING SORE THROAT. PER MD INSTRUCTION, INSPECTED ORAL CAVITY. NO WHITE PATCHES OR SPOTS NOTED. CEPACOL LOZENGE ADMINISTERED. PROVIDED WITH FRESH ICE WATER.
[2025-01-24 16:35] VITALS: BP 150/66
--- NOTE | 2025-01-24 17:16 | NUR ---
SHIFT SUMMARY PT SPENT MOST OF THE DAY RESTING IN BED. HE GOT UP TO THE CHAIR AT LUNCH TIME AND AGAIN AT DINNER TIME, EVEN THOUGH HE WOULDN'T EAT. HE SAID AT LUNCH THAT HE WAS ONLY THIRSTY AND THEN AT DINNER HE FELT SICK TO HIS STOMACH. PRN ZOFRAN GIVEN. PT REMAINS ALERT AND ORIENTED. LUNGS ARE CLEAR. COUGHING UP THICK WHITE/YELLOW SPUTUM. AV PACED, MAP ABOVE 65. VOIDING USING THE URINAL. PT'S SON AND VISITED TODAY AND WERE UPDATED.
[2025-01-24 19:41] VITALS: BP 154/67
[2025-01-25 02:08] VITALS: BP 150/63
[2025-01-25 03:59] LABS: Anion Gap 11.0 mmol/L (3-11); Blood Urea Nitrogen 88.0 mg/dL (8-24); CO2, Blood 21.0 mmol/L (21-32); Calcium, Blood 8.4 mg/dL (8.5-10.1); Chloride, Blood 111.0 mmol/L (98-108); Creatinine, Blood 3.99 mg/dL (0.60-1.20); Glucose, Blood 126.0 mg/dL (70-99); Potassium, Blood 4.4 mmol/L (3.5-5.5); Sodium, Blood 139.0 mmol/L (136-145)
--- NOTE | 2025-01-25 05:12 | NUR ---
SHIFT SUMMARY: NO ACUTE CHANGES T/O THE NIGHT. PT SLEEPING FOR MOST OF THE NIGHT. HE REMAINS ORIENTED TO SELF, PLACE, YEAR. PT SPEAKS IN SOFT VOICE, ABLE TO COMMUNICATE APPROPRIATELY. PT REMAINS AV PACED. SBP STABLE, MAPS >65. LUNGS CLEAR. PT ON RA FOR MOST OF SHIFT W/ SATS >90%. AROUND 0300 THIS MORNING, PT NOTED TO DESAT INTO MID 80S, BREATHING REMAINED EVEN AND UNLABORED. 2L O2 VIA NC PLACED. PT SATS >90% AT THIS TIME. PT CONTINUES TO HAVE OCCASSIONAL COUGH, VERY SCANT SPUTUM NOTED THIS SHIFT. PT DENIED NAUSEA. REPORTED MILD ABD DISCOMFORT AT START OF SHIFT BUT DID NOT ENDORSE IT LATER T/O SHIFT WHEN ASKED. PT CONTINUES VOIDING USING THE URINAL. PIV IN LFA REMAINS SALINE LOCKED. CARE CONTINUES.
[2025-01-25 06:00] VITALS: BP 142/62
[2025-01-25 09:09] VITALS: BP 146/66
--- NOTE | 2025-01-25 16:35 | NUR ---
TRANSFER TO [facility]. PT TRANSFERED TO MEDICAL FROM ICU. PT ORIENTED TO ROOM. CALL LIGHT IN REACH. SKIN ASSESSMENT COMPLETED WITH FORTUNATO NOE RN. SCATTERED BRUISING WITH DRY FRAGILE SKIN NOTED. PT DENIES SOB/CP. RESTING IN BED. LIGHTS TURNED OFF SO PT CAN REST. DENIES PAIN AT THIS TIME.
--- NOTE | 2025-01-25 16:41 | NUR ---
TRANSFER PT TRANSFERED TO [facility] 344 AT 1630.
[2025-01-25 17:04] VITALS: BP 133/62
[2025-01-25 19:22] VITALS: BP 138/60
[2025-01-25 23:56] VITALS: BP 134/64
--- NOTE | 2025-01-26 03:28 | NUR ---
SHIFT SUMMARY NO ACUTE EVENTS DURING THIS SHIFT. PT C/O 12/12 CHRONIC RIGHT SHOULDER PAIN. MEDICATED WITH PRN TYLENOL AT HS. TELE: V-PACED @60, PT DENIES CP/PRESSURE. VSS. HS B. INSULIN ADMIN ORDERED. BED AT THE LOWEST POSITION, CALL LIGHT W/I REACH. PT IS A/O X4, APPEARS WITHDRAWN, PLEASANT AND COOPERATIVE WITH CARE.
[2025-01-26 04:47] VITALS: BP 157/70
[2025-01-26 05:57] VITALS: BP 165/72
[2025-01-26 07:39] VITALS: BP 140/62
[2025-01-26 16:13] VITALS: BP 163/79
--- NOTE | 2025-01-26 18:36 | NUR ---
SHIFT SUMMARY "SIMRAN'S" PLAN FOR DISPO IS TO SNF FOR REGAINING STRENGTH WITH PT PENDING BED SEARCH. 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 PT STARTED NEWLY ON PROZAC TODAY FOR DEPRESSION. DESPITE SATURATING >93% ON RA, C/O INCREASING DYSPNEA AT REST, WORSE SUPINE, BETTER AT ELEVATION. PLACED ON 2L NC FOR COMFORT. ATE VERY LITTLE OF LUNCH, AND IS DECLINING DINNER. AMBULATES STEADILY WITH FWW AND SBA WITH RN AND PT TODAY IN AM. UP IN CHAIR FOR BREAKFAST ONLY. MINIMAL URINARY INCONTINENCE, AND UTILIZING BOTH BEDSIDE URINAL AND BATHROOM TODAY. CLEAR FROM COVID PRECAUTIONS SINCE 0000 TODAY.
[2025-01-26 19:31] VITALS: BP 155/69
[2025-01-27 04:02] VITALS: BP 156/68
[2025-01-27 07:33] VITALS: BP 151/67
--- NOTE | 2025-01-27 15:31 | NUR ---
DISCHARGE NOTE PT DISCHARGED TO [facility], REPORT RECEIVED FROM RN AT [facility]. TRANSPORT PACKET PROVIDED TO THE TRANSPORT. IV REMOVED. LEFT MESSAGE FOR SON, DEONNA, TO LET HIM KNOW ABOUT THE TRANSFER. PERSONAL BELONGINGS RETURNED.
[2025-01-27] MEDS ORDERED: BUME1 PO (15:40)
[2025-01-27] MEDS ORDERED: Acetaminophen650 M1 PO (15:40)
[2025-01-27] MEDS ORDERED: Prozac20 MG PO (15:40)
[2025-01-27] MEDS ORDERED: TRAM50 PO (15:41)
== END 2025-01-27 15:20 | DRG 291 ==
LOC: ER 07:11 → ERHOLD 07:12 → ICUE 16:52 → MEDS 01-25 16:31
PROVIDERS: Internal Medicine; Physician Assistant; ADMIT Internal Medicine
DX: I13.0 Hypertensive heart and chronic kidney disease with heart failure and stage 1 through stage 4 chronic kidney disease, or unspecified chronic kidney disease (principal); I50.43 Acute on chronic combined systolic (congestive) and diastolic (congestive) heart failure; J96.01 Acute respiratory failure with hypoxia; N18.4 Chronic kidney disease, stage 4 (severe); I47.20 Ventricular tachycardia, unspecified; I25.10 Atherosclerotic heart disease of native coronary artery without angina pectoris; D72.819 Decreased white blood cell count, unspecified; Z66 Do not resuscitate; E11.22 Type 2 diabetes mellitus with diabetic chronic kidney disease; E11.42 Type 2 diabetes mellitus with diabetic polyneuropathy; D63.1 Anemia in chronic kidney disease; F32.A Depression, unspecified; J20.9 Acute bronchitis, unspecified; Z90.49 Acquired absence of other specified parts of digestive tract; Z86.73 Personal history of transient ischemic attack (TIA), and cerebral infarction without residual deficits; Z86.711 Personal history of pulmonary embolism; Z95.5 Presence of coronary angioplasty implant and graft; Z98.890 Other specified postprocedural states; Z90.89 Acquired absence of other organs; Z95.4 Presence of other heart-valve replacement; Z79.01 Long term (current) use of anticoagulants; Z79.4 Long term (current) use of insulin; Z79.82 Long term (current) use of aspirin; Z79.84 Long term (current) use of oral hypoglycemic drugs; Z79.899 Other long term (current) drug therapy
CPT/HCPCS: 36415; 71045; 80048; 80053; 82803; 82947; 83880; 84145; 84484; 85025; 93005; 93010; 96372; 96374; 96375; 97112; 97116; 97162; 97530; 99285-25; A9270; G0378; J0282; J0696; J1100; J1644; J1815; J1938; J2405; J7050

== ENCOUNTER → 2025-02-09 | Outpatient (CLI) | payer MEDICARE, OTHER ==
[~2025-02-09] MED LIST changes: +Acetaminophen650 M1 PO; +BUME1 PO; +CARVEDILOL6.25 MG PO; +ELIQUIS2.5 MG PO; +FUROSEMIDE20 MG PO; +OXAYDO5 M1 PO; +Prozac20 MG PO; +TRAM50 PO
[2025-02-10 13:39] LABS: Campylobacter Sp Not Detected (NOT DETECT); E. Coli O157 Not Detected (NOT DETECT); Enteroaggregative E. coli-EAEC Not Detected (NOT DETECT); Enteropathogenic E. coli-EPEC Not Detected (NOT DETECT); Enterotoxigenic E. coli-ETEC Not Detected (NOT DETECT); Salmonella Sp Not Detected (NOT DETECT); Shiga Toxin-prod E. coli-STEC Not Detected (NOT DETECT); Shigella/Enteroin E. coli-EIEC Not Detected (NOT DETECT); Vibrio Sp Not Detected (NOT DETECT)
== END ==
LOC: LAB 16:00 → LAB SHORT 16:00
PROVIDERS: Internal Medicine
DX: R19.7 Diarrhea, unspecified (principal)
CPT/HCPCS: 87507